=== PATIENT | female | born 1955 | race Caucasian/White ===

== ENCOUNTER 2020-09-21 10:53 | Outpatient (REF) | payer BC, SELFPAY ==
[2020-09-21 10:59] LABS: MANUAL DIFF FLAG NO
[2020-09-21 11:12] LABS: Basophils Percent Auto 0.7 % (0-2); Eosinophils Absolute Auto 0.3 X10*3/uL (0.0-0.4); Eosinophils Percent Auto 4.6 % (0-4); Hematocrit 38.7 % (37-47); Hemoglobin 12.4 g/dl (12.0-16.0); Imm Gran Abs Auto 0.02 X10*3/uL (0.00-0.03); Imm Gran Pct Auto 0.4 % (0.0-0.4); Lymphocytes Absolute Auto 1.9 X10*3/uL (1.2-4.9); Lymphocytes Percent Auto 34.1 % (20-40); Mean Corpuscular Hemoglobin 28.1 pg (27.0-33.0); Mean Corpuscular Volume 87.8 fL (80-98); Mean Platelet Volume 11.5 fL (9.4-12.3); Monocytes Absolute Auto 0.6 X10*3/uL (0.1-1.2); Monocytes Percent Auto 10.5 % (2-11); Neutrophils Absolute Auto 2.7 X10*3/uL (2.0-8.3); Neutrophils Percent Auto 49.7 % (45-73); Platelet Count 172 X10*3/uL (160-400); Red Blood Count 4.41 X10*6/uL (4.20-5.50); Red Cell Distribution Width 13.2 % (11.0-16.0); White Blood Count 5.4 X10*3/uL (4.8-10.8)
[2020-09-21 11:17] LABS: Estimated Average Glucose 117 mg/dL; Hemoglobin A1c % 5.7 %
[2020-09-21 11:22] LABS: Alanine Aminotransferase 15 U/L (0-31); Albumin Level 4.2 g/dL (3.5-5.0); Alkaline Phosphatase 68 U/L (39-117); Anion Gap 11 (12-20); Aspartate Amino Transferase 25 U/L (5-31); Bilirubin Total 0.7 mg/dL (0.0-1.0); Blood Urea Nitrogen 15 mg/dL (9-16); Calcium 9.3 mg/dL (8.4-10.2); Carbon Dioxide 26 mmol/L (22-29); Chloride 106 mmol/L (96-108); Cholesterol 242 mg/dL; Estimated Glomerular Filt Rate 53; Glucose Fasting 98 mg/dL (60-99); HDL Cholesterol 50 mg/dL; LDL Cholesterol Calculated 164 mg/dl; Potassium 4.2 mmol/L (3.3-5.1); Sodium 139 mmol/L (135-145); Total Protein 6.7 g/dL (6.5-8.0); Triglycerides 140 mg/dL
[2020-09-21 11:23] LABS: Glucose Urine UA NEG (NEG); Leukocyte Esterase Urine 1+ (NEG); Nitrite Urine NEG (NEG); Urine Blood NEG (NEG); Urine Ketones NEG (NEG); Urine Protein NEG (NEG-TRACE)
[2020-09-21 11:25] LABS: Appearance Urine CLEAR; Color Urine YELLOW
[2020-09-21 11:43] LABS: Vitamin D 25-OH Total 28.2 ng/mL (>30)
[2020-09-21 11:49] LABS: Creatinine Urine 45.83 mg/dL; Microalbumin Urine < 5.0 mg/L
[2020-09-21 11:51] LABS: Bacteria Urine TRACE /LPF; RBC Urine 0-2 /HPF (0); Squamous Epithelial Cell Urine 1+ /LPF; WBC Urine 0-2 /HPF (0-4)
[2020-09-21 11:56] LABS: Reflex LDLD? No
== END 2020-09-21 10:54 | disposition home or self-care (01) ==
LOC: HO.LNP 10:53
PROVIDERS: Visit Provider Internal Medicine
DX: Z00.00 Encounter for general adult medical examination without abnormal findings (principal); I10 Essential (primary) hypertension; E03.9 Hypothyroidism, unspecified; R73.03 Prediabetes; E78.00 Pure hypercholesterolemia, unspecified; E55.9 Vitamin D deficiency, unspecified
CPT/HCPCS: 80053; 80061; 81001; 81003; 82043; 82306; 83036; 84443; 85025

== ENCOUNTER 2021-09-23 11:10 | Outpatient (REF) | payer BC, SELFPAY ==
[2021-09-23 11:18] LABS: MANUAL DIFF FLAG NO
[2021-09-23 11:45] LABS: Basophils Absolute Auto 0.1 X10*3/uL (0.0-0.2); Basophils Percent Auto 0.8 % (0-2); Eosinophils Absolute Auto 0.4 X10*3/uL (0.0-0.4); Eosinophils Percent Auto 4.7 % (0-4); Hematocrit 38.7 % (37.0-47.0); Hemoglobin 12.5 g/dl (12.0-16.0); Imm Gran Abs Auto 0.03 X10*3/uL (0.00-0.03); Imm Gran Pct Auto 0.4 % (0.0-0.4); Lymphocytes Absolute Auto 2.5 X10*3/uL (1.2-4.9); Lymphocytes Percent Auto 32.2 % (20-40); Mean Corpuscular HGB Conc 32.3 g/dl (31.0-35.0); Mean Corpuscular Hemoglobin 27.9 pg (27.0-33.0); Mean Corpuscular Volume 86.4 fL (80.0-98.0); Mean Platelet Volume 11.2 fL (9.4-12.3); Monocytes Absolute Auto 0.6 X10*3/uL (0.1-1.2); Monocytes Percent Auto 8.1 % (2-11); Neutrophils Absolute Auto 4.2 x10*3/uL (2.0-8.3); Neutrophils Percent Auto 53.8 % (45-73); Platelet Count 200 X10*3/uL (160-400); Red Blood Count 4.48 X10*6/uL (4.20-5.50); Red Cell Distribution Width 13.2 % (11.0-16.0); White Blood Count 7.7 X10*3/uL (4.8-10.8)
[2021-09-23 11:55] LABS: Estimated Average Glucose 114 mg/dL; Hemoglobin A1c % 5.6 %
[2021-09-23 12:10] LABS: Appearance Urine CLEAR; Color Urine YELLOW; Glucose Urine UA NEG (NEG); Leukocyte Esterase Urine 1+ (NEG); Nitrite Urine NEG (NEG); PH 5.5 (5.0-8.0); Specific Gravity - Urine >= 1.030 (1.005-1.025); Urine Blood NEG (NEG); Urine Ketones NEG (NEG); Urine Protein NEG (NEG-TRACE)
[2021-09-23 12:48] LABS: Creatinine Urine 160.31 mg/dL; Microalbum/Creatinine Ratio Ur 6.8 ug/mg cr
[2021-09-23 12:52] LABS: Alanine Aminotransferase 12 U/L (0-31); Albumin Level 4.1 g/dL (3.5-5.0); Anion Gap 14 (12-20); Aspartate Amino Transferase 18 U/L (5-31); Bilirubin Total 0.8 mg/dL (0.0-1.0); Blood Urea Nitrogen 26 mg/dL (9-16); Calcium 8.7 mg/dL (8.4-10.2); Carbon Dioxide 20 mmol/L (22-29); Chloride 107 mmol/L (96-108); Estimated Glomerular Filt Rate 55; Glucose Fasting 77 mg/dL (60-99); Sodium 137 mmol/L (135-145); Total Protein 6.5 g/dL (6.5-8.0); Triglycerides 158 mg/dL
[2021-09-23 12:53] LABS: Alkaline Phosphatase 70 U/L (39-117); Cholesterol 216 mg/dL; HDL Cholesterol 39 mg/dL; LDL Cholesterol Calculated 146 mg/dl
[2021-09-23 13:04] LABS: TSH reflex Free T4 2.56 uIU/mL (0.32-4.0)
[2021-09-23 13:09] LABS: Hyaline Casts Urine 0-2 /LPF; RBC Urine 0 /HPF (0); Squamous Epithelial Cell Urine 1+ /LPF
== END 2021-09-23 11:11 | disposition home or self-care (01) ==
LOC: HO.LNP 11:10
PROVIDERS: Visit Provider Internal Medicine
DX: Z00.00 Encounter for general adult medical examination without abnormal findings (principal); I10 Essential (primary) hypertension; E03.9 Hypothyroidism, unspecified; R73.03 Prediabetes; E78.00 Pure hypercholesterolemia, unspecified; E55.9 Vitamin D deficiency, unspecified
CPT/HCPCS: 80053; 80061; 81001; 82043; 82306; 83036; 84443; 85025

== ENCOUNTER 2021-10-28 11:00 | Outpatient (REF) | payer BC, SELFPAY ==
[2021-10-28 11:23] LABS: Blood Urea Nitrogen 25 mg/dL (9-16); Estimated Glomerular Filt Rate 54
== END 2021-10-28 11:01 | disposition home or self-care (01) ==
LOC: HO.LNP 11:00
PROVIDERS: Visit Provider Internal Medicine
DX: Z13.89 Encounter for screening for other disorder (principal)
CPT/HCPCS: 82565; 84520

== ENCOUNTER 2022-03-22 16:13 | Emergency (ER) | payer BC, SELFPAY ==
--- NOTE | ~2022-03-22 | US_ITS ---
EXAMINATION: US ABDOMEN COMPLETE CLINICAL INFORMATION: Right upper quadrant pain radiating to the right flank. COMPARISON: MRI abdomen 09/22/2015. TECHNIQUE: Real-time imaging of the abdominal viscera. FINDINGS: PANCREAS: There is a 3.1 x 1.8 x 1.7 cm cystic appearing lesion in the pancreatic head, increased in size compared to prior MR from 2016 4 8 measure up to 2 cm. ABDOMINAL AORTA: The proximal, mid, and distal segments are normal in caliber. INFERIOR VENA CAVA: Visualized portions are normal. LIVER: The liver is normal in size. The liver contour is normal. Increased parenchymal echogenicity sparing the region adjacent to the gallbladder fossa. No focal hepatic lesion. There is no intrahepatic biliary duct dilatation seen. GALLBLADDER: Normal. The gallbladder is physiologically distended without evidence of stones, sludge, polyps, wall thickening or pericholecystic fluid. COMMON BILE DUCT: Normal in caliber measuring 0.4 cm in diameter. RIGHT KIDNEY: There is a simple cyst in the lower pole measuring 0.7 cm, for which no imaging follow-up is recommended. No hydronephrosis or renal calculi. The kidney measures 10 cm in maximum dimension. LEFT KIDNEY: There are multiple simple cysts largest measuring 2.3 cm in the lower pole for which no imaging follow-up is recommended. No hydronephrosis or renal calculi. The kidney measures 10.2 cm in maximum dimension. SPLEEN: Normal. The spleen measures 9.5 cm in maximum dimension. FREE FLUID: None. US/US abdomen complete IMPRESSION: 1. There is a 3.1 cm cystic lesion in the pancreatic head, increased in size compared to 2016 MR from 2016. Recommend further characterization with a contrast-enhanced abdominal MRI/MRCP pancreatic protocol. 2. Increased hepatic parenchymal echogenicity suggesting hepatic steatosis. 3. Simple bilateral renal cysts for which no imaging follow-up is recommended.
--- NOTE | ~2022-03-22 | CT_ITS ---
EXAMINATION: CT ABDOMEN AND PELVIS WITH CONTRAST CLINICAL INFORMATION: Abdominal pain. COMPARISON: Abdominal ultrasound performed earlier today. MRI abdomen 09/22/2015. CT abdomen/pelvis 09/20/2015.. TECHNIQUE: Multidetector volumetric images were obtained from the superior aspect of the liver through the pubic symphysis following administration 85 mL of Omnipaque 350 intravenous contrast. Sagittal and coronal reformatted images were obtained on the technologist's workstation. Oral contrast: No This CT examination was performed using dose optimization techniques as appropriate, variously including the following: *Automated exposure control *Adjustment of mA and/or kV according to patient size (this includes techniques or standardized protocols for targeted exams where dose is matched to indication/reason for exam; i.e. extremities or head) *Use of iterative reconstruction technique DLP: 629 mGy-cm FINDINGS: LUNG BASES: A 3 mm perifissural nodule along the right major fissure (4:39) is unchanged since 2016. No focal consolidation or pleural effusion. Partially visualized coronary artery calcifications. LIVER, GALLBLADDER, AND BILIARY TREE: A hypodensity in the central liver just anterior to the intrahepatic IVC (3:10) is unchanged since 2016. An additional tiny hypodensity more inferiorly in the right hepatic lobe (3:17) is also unchanged. No new liver lesion. Hydropic gallbladder with no evidence of stones or pericholecystic inflammatory changes. The common bile duct is mildly dilated measuring 0.7 cm in diameter, stable since 2016. No intrahepatic biliary ductal dilatation. PANCREAS: There is peripancreatic fat stranding with free fluid centered around the proximal pancreas most suggestive of acute pancreatitis. There is redemonstration of innumerable cystic appearing pancreatic lesions largest measuring 3.1 x 2 cm (3:23) increased in size when compared to a prior MR of the abdomen from 2016. There are scattered very small parenchymal calcifications suggesting of sequela of chronic pancreatitis. SPLEEN: Normal size. No focal lesion. ADRENAL GLANDS: No adrenal mass or nodule. KIDNEYS AND URETERS: Symmetric nephrograms. No hydronephrosis. No perinephric inflammatory changes. Multiple bilateral cortical and parapelvic cysts are noted for which no imaging follow-up is recommended. BLADDER: Unremarkable. GASTROINTESTINAL TRACT: Small hiatal hernia. There is dilatation, wall thickening and hyperemia of the duodenal sweep, likely reactive in the setting of pancreatitis. Normal appendix. Colonic diverticulosis with no pericolonic inflammatory changes. No bowel obstruction. ABDOMINAL WALL: Small fat-containing umbilical hernia. LYMPH NODES: No lymphadenopathy. VASCULAR: Abdominal aorta is of normal diameter. Is scattered atherosclerotic disease. PELVIC VISCERA: Hysterectomy. No pelvic mass. OSSEOUS STRUCTURES: No acute or aggressive appearing osseous abnormalities. Degenerative changes of the spine. CT/CT abdomen pelvis w IV con IMPRESSION: 1. Peripancreatic fat stranding and free fluid most consistent with acute pancreatitis in the appropriate clinical context. 2. Redemonstration of innumerable cystic appearing pancreatic lesions, largest measuring up to 3.1 cm, increased in size when compared to a prior MR of the abdomen from 2016 with also scattered parenchymal calcifications. Findings are overall favoring to represent sequela of chronic pancreatitis, however given changes in size further characterization with an MR of the abdomen with and without intravenous contrast plus MRCP. 3. Colonic diverticulosis but no evidence of acute diverticulitis. 4. Dilatation and wall thickening of the duodenal sweep, likely reactive in the setting of pancreatitis. 5. Small hiatal hernia.
--- NOTE | ~2022-03-22 | XR_ITS ---
EXAMINATION: XR CHEST CLINICAL INFORMATION: Nausea and epigastric abdominal pain. COMPARISON: Chest radiograph 02/22/2017. TECHNIQUE: 2 views of the chest were obtained. FINDINGS: No significant abnormality is noted involving the heart, lungs, mediastinum, bony thorax or soft tissues. XR/XR chest 2V IMPRESSION: Unremarkable examination.
[2022-03-22 16:17] VITALS: BP 137/74; PULSE 66; RESP 20; TEMP 36.6; O2SAT 98; BMI 29.8
--- NOTE | 2022-03-22 16:20 | ED_ITS ---
HPI - Abdominal Pain General Chief Complaint: Abdominal Pain Stated Complaint: food poisoning? nausea, stomach pain into back Time Seen by Provider: 03/22/22 16:30 Related Data Allergies Allergy/AdvReac Type Severity Reaction Status Date / Time No Known Allergies Allergy Unverified 11/20/19 16:36 [No Known Allergies*] FORMERLY [facility] Social History Social History Smoked in Last 30 Days: No Use of substances other than those prescribed or required for medical reasons: No Advance Directives: No Advance Directives Information Provided: Yes Physical Exam ED Vital Signs: Vital Signs - 24 hr 03/22/22 16:17 Temperature 97.8 F Pulse Rate 66 Respiratory Rate 20 Blood Pressure 137/74 Pulse Oximetry 98 Oxygen Delivery Method Room Air BMI result Body Mass Index 29.8 Course Course Course Narrative: RME- 16:25PM - 66yoF c PMHx of NSTEMI and HTN presenting to the ED c c/o nausea c epigastric abd pain radiating to R flank since last night worse today. Denies any other symptoms related to this. Plan: Labs, EKG, CXR, ABD us, UA, COVID/RSV/flu swab. Patient will be sent back to the waiting room to be evaluated in the ED. Medical Decision Making Lab Data 03/22/22 16:33 03/22/22 16:33 Labs: Lab Results 03/22/22 03/22/22 03/22/22 Range/Units 16:33 16:33 16:33 WBC 11.3 H (4.8-10.8) X10*3/uL RBC 4.65 (4.20-5.50) X10*6/uL Hgb 12.9 (12.0-16.0) g/dl Hct 38.4 (37.0-47.0) % MCV 82.6 (80.0-98.0) fL MCH 27.7 (27.0-33.0) pg MCHC 33.6 (31.0-35.0) g/dl RDW 12.4 (11.0-16.0) % Plt Count 198 (160-400) X10*3/uL MPV 10.1 (9.4-12.3) fL Immature Gran % (Auto) 0.3 (0.0-0.4) % Neut % (Auto) 78.2 H (45-73) % Lymph % (Auto) 12.1 L (20-40) % Barron % (Auto) 7.2 (2-11) % Eos % (Auto) 1.8 (0-4) % Baso % (Auto) 0.4 (0-2) % Lymph # (Auto) 1.4 (1.2-4.9) X10*3/uL Barron # (Auto) 0.8 (0.1-1.2) X10*3/uL Eos # (Auto) 0.2 (0.0-0.4) X10*3/uL Baso # (Auto) 0.0 (0.0-0.2) X10*3/uL Abs Immat Gran (auto) 0.03 (0.00-0.03) X10*3/uL Absolute Neuts (auto) 8.9 H (2.0-8.3) x10*3/uL Absolute Nucleated RBC 0.000 (0.0-0.012) X10*3/uL Nucleated RBC % (auto) 0.0 (0.0-0.2) /100WBC PT 12.0 (10.0-13.1) SEC INR 1.0 (0.9-1.1) Sodium 136 (135-145) mmol/L Potassium 4.0 (3.3-5.1) mmol/L Chloride 102 (96-108) mmol/L Carbon Dioxide 24 (22-29) mmol/L Anion Gap 14 (12-20) BUN 15 (9-16) mg/dL Creatinine 0.93 (0.5-1.4) mg/dL Estim Creat Clear Calc 64.9 Estimated GFR > 60 Random Glucose 118 H (60-115) mg/dL Calcium 9.1 (8.4-10.2) mg/dL Magnesium 1.7 (1.6-2.6) mg/dL Total Bilirubin 1.6 H (0.0-1.0) mg/dL AST 18 (5-31) U/L ALT 12 (0-31) U/L Alkaline Phosphatase 74 (39-117) U/L Troponin I High Sens (<3.5-17.0) ng/L Total Protein 6.6 (6.5-8.0) g/dL Albumin 4.1 (3.5-5.0) g/dL Lipase 51 (8-78) U/L Influenza Type A (PCR) (Negative) Influenza Type B (PCR) (Negative) RSV RNA Qual (PCR) (Negative) SARS-CoV-2 RNA (RT-PCR) (Negative) 03/22/22 03/22/22 Range/Units 16:33 16:33 WBC (4.8-10.8) X10*3/uL RBC (4.20-5.50) X10*6/uL Hgb (12.0-16.0) g/dl Hct (37.0-47.0) % MCV (80.0-98.0) fL MCH (27.0-33.0) pg MCHC (31.0-35.0) g/dl RDW (11.0-16.0) % Plt Count (160-400) X10*3/uL MPV (9.4-12.3) fL Immature Gran % (Auto) (0.0-0.4) % Neut % (Auto) (45-73) % Lymph % (Auto) (20-40) % Barron % (Auto) (2-11) % Eos % (Auto) (0-4) % Baso % (Auto) (0-2) % Lymph # (Auto) (1.2-4.9) X10*3/uL [place]ron # (Auto) (0.1-1.2) X10*3/uL Eos # (Auto) (0.0-0.4) X10*3/uL Baso # (Auto) (0.0-0.2) X10*3/uL Abs Immat Gran (auto) (0.00-0.03) X10*3/uL Absolute Neuts (auto) (2.0-8.3) x10*3/uL Absolute Nucleated RBC (0.0-0.012) X10*3/uL Nucleated RBC % (auto) (0.0-0.2) /100WBC PT (10.0-13.1) SEC INR (0.9-1.1) Sodium (135-145) mmol/L Potassium (3.3-5.1) mmol/L Chloride (96-108) mmol/L Carbon Dioxide (22-29) mmol/L Anion Gap (12-20) BUN (9-16) mg/dL Creatinine (0.5-1.4) mg/dL Estim Creat Clear Calc Estimated GFR Random Glucose (60-115) mg/dL Calcium (8.4-10.2) mg/dL Magnesium (1.6-2.6) mg/dL Total Bilirubin (0.0-1.0) mg/dL AST (5-31) U/L ALT (0-31) U/L Alkaline Phosphatase (39-117) U/L Troponin I High Sens < 3.5 (<3.5-17.0) ng/L Total Protein (6.5-8.0) g/dL Albumin (3.5-5.0) g/dL Lipase (8-78) U/L Influenza Type A (PCR) NEGATIVE (Negative) Influenza Type B (PCR) NEGATIVE (Negative) RSV RNA Qual (PCR) NEGATIVE (Negative) SARS-CoV-2 RNA (RT-PCR) NEGATIVE (Negative) Medications Administered Discontinued Medications Generic Name Dose Route Start Last Admin Trade Name Freq PRN Reason Stop Dose Admin Iohexol 85 ml 03/22/22 19:11 03/22/22 19:11 Iohexol 350 Mg/Ml 100 Ml Infus..Btl IV 03/22/22 19:12 85 ml ONCE ONE Administration Discharge Plan Discharge Clinical Impression: Abdominal pain Patient Disposition: Still a Patient
--- NOTE | 2022-03-22 16:22 | ECG_ITS ---
Test Reason : epigastric pain Blood Pressure : / mmHG Vent. Rate : 064 BPM Atrial Rate : 064 BPM P-R Int : 134 ms QRS Dur : 074 ms QT Int : 432 ms P-R-T Axes : 069 -06 011 degrees QTc Int : 445 ms Normal sinus rhythm Low voltage QRS Nonspecific ST and T wave abnormality Abnormal ECG When compared with ECG of 02-FEB-2017 10:27, Non-specific change in ST segment in Lateral leads Referred By: Desi Rodriguez Electronically Signed By:KJ ZUNIGA MD
[2022-03-22 16:37] LABS: MANUAL DIFF FLAG NO
[2022-03-22 16:38] LABS: Basophils Percent Auto 0.4 % (0-2); Eosinophils Absolute Auto 0.2 X10*3/uL (0.0-0.4); Eosinophils Percent Auto 1.8 % (0-4); Hematocrit 38.4 % (37.0-47.0); Hemoglobin 12.9 g/dl (12.0-16.0); Imm Gran Abs Auto 0.03 X10*3/uL (0.00-0.03); Imm Gran Pct Auto 0.3 % (0.0-0.4); Lymphocytes Absolute Auto 1.4 X10*3/uL (1.2-4.9); Lymphocytes Percent Auto 12.1 % (20-40); Mean Corpuscular HGB Conc 33.6 g/dl (31.0-35.0); Mean Corpuscular Hemoglobin 27.7 pg (27.0-33.0); Mean Corpuscular Volume 82.6 fL (80.0-98.0); Mean Platelet Volume 10.1 fL (9.4-12.3); Monocytes Absolute Auto 0.8 X10*3/uL (0.1-1.2); Monocytes Percent Auto 7.2 % (2-11); Neutrophils Absolute Auto 8.9 x10*3/uL (2.0-8.3); Neutrophils Percent Auto 78.2 % (45-73); Platelet Count 198 X10*3/uL (160-400); Red Blood Count 4.65 X10*6/uL (4.20-5.50); Red Cell Distribution Width 12.4 % (11.0-16.0); White Blood Count 11.3 X10*3/uL (4.8-10.8)
--- NOTE | 2022-03-22 16:47 | ED_ITS ---
HPI - Abdominal Pain General Chief Complaint: Abdominal Pain Stated Complaint: food poisoning? nausea, stomach pain into back Time Seen by Provider: 03/22/22 16:30 History of Present Illness HPI narrative: patient is a 66-year-old female had steak yesterday evening. Subsequently bout 4 hours later started developing epigastric pain radiating to the right upper quadrant. Patient never had similar symptoms in the past. Not associated with any chest pain. No bloody stool. No nausea no vomiting no rash. Positive decreased appetite. There is pain subsided gradually. It is not associated with any diaphoresis. Patient has a history of hypertension no history of [place] no history of coronary artery disease no history of hyper cholesterolemia no family history of CAD. Denies any change in bowel movement. No abdominal surgery done in the past. Related Data Previous Rx's Medication Instructions Recorded ondansetron 4 mg disintegrating 4 mg PO TID PRN nausea and 03/22/22 tablet vomiting 5 days #10 tabs oxycodone 5 mg tablet 5 mg PO Q8H PRN pain #7 tabs 03/22/22 Allergies Allergy/AdvReac Type Severity Reaction Status Date / Time No Known Allergies Allergy Unverified 11/20/19 16:36 [No Known Allergies*] Review of Systems Review of Systems Positive epigastric right upper quadrant pain Yes all other systems are reviewed and are negative [facility] Past Medical History Attestation statement: The following information was validated with the patient. Social History Social History Smoked in Last 30 Days: No Use of substances other than those prescribed or required for medical reasons: No Advance Directives: No Advance Directives Information Provided: Yes Physical Exam ED Vital Signs: Vital Signs - 24 hr 03/22/22 16:17 03/22/22 20:52 03/22/22 21:00 Temperature 97.8 F 99.0 F Pulse Rate 66 63 Respiratory Rate 20 16 16 Blood Pressure 137/74 125/62 Pulse Oximetry 98 96 Oxygen Delivery Method Room Air Room Air BMI result Body Mass Index 29.8 Appearance: Alert. Oriented X3. No acute distress. Eyes: Pupils equal, round and reactive to light. ENT: Pharynx normal. Neck: Normal inspection. Neck supple. No lymph nodes noted. No crepitus CVS: Normal heart rate and rhythm. Pulses normal. Normal S1 and S2 Respiratory: No respiratory distress. Breath sounds normal. No Wheezing. No rales Abdomen: Soft and nontender. No rigidity. No distention. good BS x4 Skin: Skin warm and dry. Normal skin color. Normal skin turgor. Extremities: No lower extremity edema. Neurovascular intact to all extremities. No Lacerations. No Rash Neuro: Oriented X 3. No motor deficit. No sensory deficit. Moving all extermities. No slurred speech Medical Decision Making Differential Diagnosis Patient presents with epigastric pain after eating fatty foods. Ultrasound ordered. It showed a 3.1 cm cystic lesion in the head of the pancreas. It has increased in size compared to 2016 MRI. Will require follow-up on an outpatient basis. Patient's LFTs actually normal. CT scan consistent with having some inflammation in the pancreas. Patient's lipase is normal. More likely this is some form of chronic left pancreatitis. Will require follow-up on an outpatient basis. Patient's pain subsided after 1 dose of Dilaudid. Pain not consistent with myocardial infarction. Patient's troponin is negative. EKG showed a sinus pattern heart rate is 70 CO QRS QT within normal limits there is no acute ST segment elevation. Pain atypical for ACS. Heart score is less than 3. Will require follow-up on an outpatient basis. A joint decision was made to send the patient home. A copy of the CT report ultrasound report was given to patient. Her LFTs actually baseline. Her lipase was normal. She is in stable condition. Will discharge home. Pain has completely resolved after dose of pain medicine. Admission/Observation Consideration of admission/observation: Escalation of care including admission/observation considered Lab Data MDM Lab Attestation statement: I reviewed the patient's lab results. 03/22/22 16:33 03/22/22 16:33 Labs: Lab Results 03/22/22 03/22/22 03/22/22 Range/Units 16:33 16:33 16:33 WBC 11.3 H (4.8-10.8) X10*3/uL RBC 4.65 (4.20-5.50) X10*6/uL Hgb 12.9 (12.0-16.0) g/dl Hct 38.4 (37.0-47.0) % MCV 82.6 (80.0-98.0) fL MCH 27.7 (27.0-33.0) pg MCHC 33.6 (31.0-35.0) g/dl RDW 12.4 (11.0-16.0) % Plt Count 198 (160-400) X10*3/uL MPV 10.1 (9.4-12.3) fL Immature Gran % (Auto) 0.3 (0.0-0.4) % Neut % (Auto) 78.2 H (45-73) % Lymph % (Auto) 12.1 L (20-40) % Campbell % (Auto) 7.2 (2-11) % Eos % (Auto) 1.8 (0-4) % Baso % (Auto) 0.4 (0-2) % Lymph # (Auto) 1.4 (1.2-4.9) X10*3/uL Campbell # (Auto) 0.8 (0.1-1.2) X10*3/uL Eos # (Auto) 0.2 (0.0-0.4) X10*3/uL Baso # (Auto) 0.0 (0.0-0.2) X10*3/uL Abs Immat Gran (auto) 0.03 (0.00-0.03) X10*3/uL Absolute Neuts (auto) 8.9 H (2.0-8.3) x10*3/uL Absolute Nucleated RBC 0.000 (0.0-0.012) X10*3/uL Nucleated RBC % (auto) 0.0 (0.0-0.2) /100WBC PT 12.0 (10.0-13.1) SEC INR 1.0 (0.9-1.1) Sodium 136 (135-145) mmol/L Potassium 4.0 (3.3-5.1) mmol/L Chloride 102 (96-108) mmol/L Carbon Dioxide 24 (22-29) mmol/L Anion Gap 14 (12-20) BUN 15 (9-16) mg/dL Creatinine 0.93 (0.5-1.4) mg/dL Estim Creat Clear Calc 64.9 Estimated GFR > 60 Random Glucose 118 H (60-115) mg/dL Calcium 9.1 (8.4-10.2) mg/dL Magnesium 1.7 (1.6-2.6) mg/dL Total Bilirubin 1.6 H (0.0-1.0) mg/dL AST 18 (5-31) U/L ALT 12 (0-31) U/L Alkaline Phosphatase 74 (39-117) U/L Troponin I High Sens (<3.5-17.0) ng/L Total Protein 6.6 (6.5-8.0) g/dL Albumin 4.1 (3.5-5.0) g/dL Lipase 51 (8-78) U/L Urine Color Urine Appearance Urine pH (5.0-9.0) Ur Specific [place] (1.005-1.025) Urine Protein (Neg-Trace) mg/dL Urine Glucose (UA) (Negative) mg/dL Urine Ketones (Negative) mg/dL Urine Blood (Negative) Urine Nitrite (Negative) Ur Leukocyte Esterase (Negative) Influenza Type A (PCR) (Negative) Influenza Type B (PCR) (Negative) RSV RNA Qual (PCR) (Negative) SARS-CoV-2 RNA (RT-PCR) (Negative) 03/22/22 03/22/22 03/22/22 Range/Units 16:33 16:33 21:00 WBC (4.8-10.8) X10*3/uL RBC (4.20-5.50) X10*6/uL Hgb (12.0-16.0) g/dl Hct (37.0-47.0) % MCV (80.0-98.0) fL MCH (27.0-33.0) pg MCHC (31.0-35.0) g/dl RDW (11.0-16.0) % Plt Count (160-400) X10*3/uL MPV (9.4-12.3) fL Immature Gran % (Auto) (0.0-0.4) % Neut % (Auto) (45-73) % Lymph % (Auto) (20-40) % Campbell % (Auto) (2-11) % Eos % (Auto) (0-4) % Baso % (Auto) (0-2) % Lymph # (Auto) (1.2-4.9) X10*3/uL [place] # (Auto) (0.1-1.2) X10*3/uL Eos # (Auto) (0.0-0.4) X10*3/uL Baso # (Auto) (0.0-0.2) X10*3/uL Abs Immat Gran (auto) (0.00-0.03) X10*3/uL Absolute Neuts (auto) (2.0-8.3) x10*3/uL Absolute Nucleated RBC (0.0-0.012) X10*3/uL Nucleated RBC % (auto) (0.0-0.2) /100WBC PT (10.0-13.1) SEC INR (0.9-1.1) Sodium (135-145) mmol/L Potassium (3.3-5.1) mmol/L Chloride (96-108) mmol/L Carbon Dioxide (22-29) mmol/L Anion Gap (12-20) BUN (9-16) mg/dL Creatinine (0.5-1.4) mg/dL Estim Creat Clear Calc Estimated GFR Random Glucose (60-115) mg/dL Calcium (8.4-10.2) mg/dL Magnesium (1.6-2.6) mg/dL Total Bilirubin (0.0-1.0) mg/dL AST (5-31) U/L ALT (0-31) U/L Alkaline Phosphatase (39-117) U/L Troponin I High Sens < 3.5 (<3.5-17.0) ng/L Total Protein (6.5-8.0) g/dL Albumin (3.5-5.0) g/dL Lipase (8-78) U/L Urine Color Yellow Urine Appearance Clear Urine pH 6.5 (5.0-9.0) Ur Specific [place] 1.025 (1.005-1.025) Urine Protein Trace (Neg-Trace) mg/dL Urine Glucose (UA) Negative (Negative) mg/dL Urine Ketones 15 (Negative) mg/dL Urine Blood Negative (Negative) Urine Nitrite Negative (Negative) Ur Leukocyte Esterase Negative (Negative) Influenza Type A (PCR) NEGATIVE (Negative) Influenza Type B (PCR) NEGATIVE (Negative) RSV RNA Qual (PCR) NEGATIVE (Negative) SARS-CoV-2 RNA (RT-PCR) NEGATIVE (Negative) Independent Interpretation I performed an independent interpretation of an: EKG Interpretation: Side is heart rate is 70 CO QRS QT within normal limits is no acute ST segment elevation. Radiology Impression Discussion of test interpretation with radiology: I have reviewed the radiologist's reading. Independent Historian Clinical information obtained from an independent historian. History obtained from or confirmed by: Spouse Prescription Management I considered prescription management with: Pain Medication Medications Administered Discontinued Medications Generic Name Dose Route Start Last Admin Trade Name Freq PRN Reason Stop Dose Admin Hydromorphone HCl 0.5 mg 03/22/22 20:25 03/22/22 20:52 Hydromorphone Hcl 0.5 Mg/0.5 Ml Syringe IVPUSH 03/22/22 20:26 0.5 mg ONCE ONE Administration Protocol Iohexol 85 ml 03/22/22 19:11 03/22/22 19:11 Iohexol 350 Mg/Ml 100 Ml Infus..Btl IV 03/22/22 19:12 85 ml ONCE ONE Administration Ondansetron HCl 4 mg 03/22/22 20:25 03/22/22 20:52 Ondansetron Hcl 4 Mg/2 Ml Vial IVPUSH 03/22/22 20:26 4 mg ONCE ONE Administration Discharge Plan Discharge Clinical Impression: Abdominal pain, Pancreatitis Patient Disposition: Home, Self-Care Instructions: Pancreatitis (ED), Acute Nausea and Vomiting (ED) Additional Instructions: Lots of nonspecific finding was noted on your CAT scan and ultrasound. You will need follow-up on an outpatient basis with your primary physician. Worsening condition return. Please refrain from eating fatty foods. Prescriptions: New ondansetron 4 mg tablet,disintegrating 4 mg PO TID PRN (Reason: nausea and vomiting) 5 Days Qty: 10 0RF oxycodone 5 mg tablet 5 mg PO Q8H PRN (Reason: pain) Qty: 7 0RF Rx Instructions: Partial Fill upon patient request. Referrals: Arsen Palacios MD [Primary Care Provider] -
[2022-03-22 16:52] LABS: Alanine Aminotransferase 12 U/L (0-31); Albumin Level 4.1 g/dL (3.5-5.0); Alkaline Phosphatase 74 U/L (39-117); Anion Gap 14 (12-20); Aspartate Amino Transferase 18 U/L (5-31); Bilirubin Total 1.6 mg/dL (0.0-1.0); Blood Urea Nitrogen 15 mg/dL (9-16); Calcium 9.1 mg/dL (8.4-10.2); Carbon Dioxide 24 mmol/L (22-29); Chloride 102 mmol/L (96-108); Creatinine Clr Calc Pharmacy 64.9; Estimated Glomerular Filt Rate > 60; Glucose Random 118 mg/dL (60-115); Lipase 51 U/L (8-78); Magnesium 1.7 mg/dL (1.6-2.6); Sodium 136 mmol/L (135-145); Total Protein 6.6 g/dL (6.5-8.0)
[2022-03-22 17:03] LABS: Troponin-I High Sensitivity < 3.5 ng/L (<3.5-17.0)
[2022-03-22 17:26] LABS: Influenza A PCR NEGATIVE (Negative); Influenza B PCR NEGATIVE (Negative); Resp Syncy Virus RNA Qual PCR NEGATIVE (Negative); SARS COV2 PCR INHOUSE NEGATIVE (Negative)
[2022-03-22] MEDS: iohexoL 350 MG/ML 100 ML INFUS..BTL 85 ML IV (19:11)
[2022-03-22 20:52] VITALS: RESP 16
[2022-03-22] MEDS: HYDROmorphone HCl 0.5 MG/0.5 ML SYRINGE IVPUSH (20:52)
[2022-03-22] MEDS: ondansetron HCL 4 MG/2 ML VIAL IVPUSH (20:52)
[2022-03-22 21:00] VITALS: BP 125/62; PULSE 63; RESP 16; TEMP 37.2; O2SAT 96
--- NOTE | 2022-03-22 21:04 | PC.NURSE ---
Pt c/o 09/11 abdominal pain that radiates to right side of abdomen and back. Pt medicated per may. Obtained urine sample.
[2022-03-22 21:13] LABS: Appearance Urine Clear; Color Urine Yellow; Glucose Urine UA Negative (Negative); Leukocyte Esterase Urine Negative (Negative); Nitrite Urine Negative (Negative); PH 6.5 (5.0-9.0); Specific Gravity - Urine 1.025 (1.005-1.025); Urine Blood Negative (Negative); Urine Ketones 15 mg/dL (Negative); Urine Protein Trace mg/dL (Neg-Trace)
== END 2022-03-22 22:05 | disposition home or self-care (01) ==
PROVIDERS: Physician Assistant Medical; Emergency Provider Emergency Medicine Emergency Medical Services; PCP Internal Medicine
DX: K85.90 Acute pancreatitis without necrosis or infection, unspecified (principal); R10.9 Unspecified abdominal pain; I10 Essential (primary) hypertension; Z20.822 Contact with and (suspected) exposure to COVID-19; Z20.828 Contact with and (suspected) exposure to other viral communicable diseases
CPT/HCPCS: 0241U; 36415; 71046; 74177; 76700; 80053; 81003; 83690; 83735; 84484; 85025; 85610; 93005; 96374; 96375; 99284; 99285; J1170; J2405; Q9967

== ENCOUNTER 2022-09-28 11:37 | Outpatient (REF) | payer BC, SELFPAY ==
[2022-09-28 11:42] LABS: MANUAL DIFF FLAG NO
[2022-09-28 13:29] LABS: Basophils Absolute Auto 0.1 X10*3/uL (0.0-0.2); Basophils Percent Auto 0.8 % (0-2); Eosinophils Absolute Auto 0.2 X10*3/uL (0.0-0.4); Eosinophils Percent Auto 3.4 % (0-4); Hemoglobin 13.6 g/dl (12.0-16.0); Imm Gran Abs Auto 0.02 X10*3/uL (0.00-0.03); Imm Gran Pct Auto 0.3 % (0.0-0.4); Lymphocytes Absolute Auto 1.8 X10*3/uL (1.2-4.9); Lymphocytes Percent Auto 25.5 % (20-40); Mean Corpuscular HGB Conc 31.6 g/dl (31.0-35.0); Mean Corpuscular Hemoglobin 27.6 pg (27.0-33.0); Mean Corpuscular Volume 87.4 fL (80.0-98.0); Mean Platelet Volume 11.5 fL (9.4-12.3); Monocytes Absolute Auto 0.5 X10*3/uL (0.1-1.2); Monocytes Percent Auto 6.8 % (2-11); Neutrophils Absolute Auto 4.5 x10*3/uL (2.0-8.3); Neutrophils Percent Auto 63.2 % (45-73); Platelet Count 183 X10*3/uL (160-400); Red Blood Count 4.92 X10*6/uL (4.20-5.50); White Blood Count 7.1 X10*3/uL (4.8-10.8)
[2022-09-28 13:33] LABS: Appearance Urine Cloudy; Color Urine Yellow; Glucose Urine UA Negative (Negative); Leukocyte Esterase Urine Small (1+) (Negative); Nitrite Urine Negative (Negative); PH 5.5 (5.0-9.0); UMIC TRIGGER UACC YES; Urine Blood Trace (Negative); Urine Ketones Negative (Negative); Urine Protein Negative (Neg-Trace)
[2022-09-28 13:43] LABS: Alanine Aminotransferase 13 U/L (0-31); Albumin Level 4.3 g/dL (3.5-5.0); Alkaline Phosphatase 77 U/L (39-117); Anion Gap 15 (12-20); Aspartate Amino Transferase 21 U/L (5-31); Bilirubin Total 0.8 mg/dL (0.0-1.0); Blood Urea Nitrogen 20 mg/dL (9-16); Calcium 9.3 mg/dL (8.4-10.2); Carbon Dioxide 20 mmol/L (22-29); Chloride 106 mmol/L (96-108); Cholesterol 249 mg/dL; Estimated Glomerular Filt Rate 52; Glucose Fasting 105 mg/dL (60-99); HDL Cholesterol 54 mg/dL; LDL Cholesterol Calculated 170 mg/dl; Potassium 4.2 mmol/L (3.3-5.1); Sodium 137 mmol/L (135-145); Total Protein 7.3 g/dL (6.5-8.0); Triglycerides 126 mg/dL
[2022-09-28 13:46] LABS: Bacteria Urine 1+ (None Seen); Hyaline Casts Urine 0-2 /LPF (0-2); UACC Culture Trigger YES; WBC Urine 0-5 /HPF (0-5)
[2022-09-28 13:49] LABS: TSH reflex Free T4 1.94 uIU/mL (0.32-4.0)
[2022-09-28 14:42] LABS: Creatinine Urine 148.69 mg/dL; Microalbum/Creatinine Ratio Ur 5.3 ug/mg cr
== END 2022-09-28 11:38 | disposition home or self-care (01) ==
LOC: HO.LNP 11:37
PROVIDERS: Visit Provider Internal Medicine
DX: Z00.00 Encounter for general adult medical examination without abnormal findings (principal); I10 Essential (primary) hypertension; E03.9 Hypothyroidism, unspecified; R73.03 Prediabetes; E78.00 Pure hypercholesterolemia, unspecified; E55.9 Vitamin D deficiency, unspecified
CPT/HCPCS: 80053; 80061; 81001; 82043; 82306; 84443; 85025; 87086

== ENCOUNTER 2023-03-09 15:47 | Outpatient (REF) | payer BC, SELFPAY | END 2023-03-09 15:48 | disposition home or self-care (01) | LOC: HO.MAMMO 15:47 | PROVIDERS: PCP Internal Medicine; Visit Provider Internal Medicine | DX: Z12.31 Encounter for screening mammogram for malignant neoplasm of breast (principal) | CPT/HCPCS: 77063; 77067 ==

== ENCOUNTER → 2023-03-09 16:30 | Outpatient (BNV) | payer BC, SELFPAY | PROVIDERS: PCP Internal Medicine; Visit Provider Radiology Diagnostic Radiology | DX: Z12.31 Encounter for screening mammogram for malignant neoplasm of breast (principal) | CPT/HCPCS: 77063; 77067 ==

== ENCOUNTER 2023-10-02 12:05 | Outpatient (REF) | payer BC, SELFPAY ==
[2023-10-02 12:10] LABS: MANUAL DIFF FLAG NO
[2023-10-02 12:16] LABS: Basophils Absolute Auto 0.1 X10*3/uL (0.0-0.2); Eosinophils Absolute Auto 0.2 X10*3/uL (0.0-0.4); Hematocrit 40.5 % (37.0-47.0); Hemoglobin 13.5 g/dl (12.0-16.0); Imm Gran Abs Auto 0.02 X10*3/uL (0.00-0.03); Imm Gran Pct Auto 0.3 % (0.0-0.4); Lymphocytes Percent Auto 33.6 % (20-40); Mean Corpuscular HGB Conc 33.3 g/dl (31.0-35.0); Mean Corpuscular Hemoglobin 28.8 pg (27.0-33.0); Mean Corpuscular Volume 86.5 fL (80.0-98.0); Mean Platelet Volume 11.7 fL (9.4-12.3); Monocytes Absolute Auto 0.5 X10*3/uL (0.1-1.2); Monocytes Percent Auto 9.3 % (2-11); Neutrophils Percent Auto 51.8 % (45-73); Platelet Count 169 X10*3/uL (160-400); Red Blood Count 4.68 X10*6/uL (4.20-5.50); White Blood Count 5.8 X10*3/uL (4.8-10.8)
[2023-10-02 12:19] LABS: Appearance Urine Cloudy; Color Urine Yellow; Glucose Urine UA Negative (Negative); Leukocyte Esterase Urine Moderate (2+) (Negative); Nitrite Urine Positive (Negative); PH 5.5 (5.0-9.0); Specific Gravity - Urine 1.025 (1.005-1.025); UMIC TRIGGER UACC YES; Urine Blood Negative (Negative); Urine Ketones Negative (Negative); Urine Protein Negative (Neg-Trace)
[2023-10-02 12:24] LABS: Bacteria Urine 4+ (None Seen); Estimated Average Glucose 117 mg/dL; Hemoglobin A1c % 5.7 % (<6.0); Hyaline Casts Urine 0-2 /LPF (0-2); RBC Urine 0-2 /HPF (0-2); UACC Culture Trigger YES
[2023-10-02 12:35] LABS: Alanine Aminotransferase 15 U/L (0-31); Albumin Level 4.2 g/dL (3.5-5.0); Alkaline Phosphatase 74 U/L (39-117); Anion Gap 12 (12-20); Aspartate Amino Transferase 22 U/L (5-31); Bilirubin Total 0.6 mg/dL (0.0-1.0); Blood Urea Nitrogen 19 mg/dL (9-16); Calcium 9.4 mg/dL (8.4-10.2); Carbon Dioxide 24 mmol/L (22-29); Chloride 108 mmol/L (96-108); Cholesterol 241 mg/dL (<200); Estimated Glomerular Filt Rate 55; Glucose Fasting 99 mg/dL (60-99); HDL Cholesterol 49 mg/dL (>40); LDL Cholesterol Calculated 165 mg/dL (<100); Potassium 3.9 mmol/L (3.3-5.1); Sodium 140 mmol/L (135-145); Total Protein 6.9 g/dL (6.5-8.0); Triglycerides 139 mg/dL (<150)
[2023-10-02 12:47] LABS: TSH reflex Free T4 2.12 uIU/mL (0.32-4.0); Vitamin D 25-OH Total 34.7 ng/mL (>30)
[2023-10-02 13:06] LABS: Microalbum/Creatinine Ratio Ur 5.4 ug/mg cr (<30)
== END 2023-10-02 12:06 | disposition home or self-care (01) ==
LOC: HO.LNP 12:05
PROVIDERS: Visit Provider Internal Medicine
DX: I10 Essential (primary) hypertension (principal); R73.09 Other abnormal glucose; E55.9 Vitamin D deficiency, unspecified; E03.9 Hypothyroidism, unspecified; E78.00 Pure hypercholesterolemia, unspecified
CPT/HCPCS: 80053; 80061; 81001; 82043; 82306; 82570; 83036; 84443; 85025; 87086

== ENCOUNTER 2024-04-03 09:50 | Outpatient (AMB) | payer BC, SELFPAY ==
--- NOTE | 2024-04-03 09:56 | MHC.OFFVIS ---
Vital Signs 04/03/24 10:07 Height 5 ft 6 in Weight 180 lb BMI 29.0 BP 142/67 H Blood Pressure Location Lt brachial Position Sitting Pulse 61 Intake Visit Reasons: pancreatic cyst Intake Note: Patient is seen in office for evaluation and treatment of a pancreatic cyst. Pt c/o: was sched for a repeat MRI and was told about the cyst, denies abdominal, nausea, vomit, diarrhea, constipation, no symptoms PCP: 03/20/24 MRI: 03/31/22 Legal Contracts Specialist Required: No Accompanied by: Self / Same As Patient Allergies No Known Allergies [No Known Allergies*] Allergy (Unverified 04/03/24 10:02) Medication List - Last Reconciled 04/03/24 by Olvin Miller MD levothyroxine mcg PO DAILY lisinopril mg PO DAILY metoprolol succinate ER mg PO DAILY HPI Comments Details: 68-year-old female patient presenting for evaluation of multiple pancreatic cysts noted on recent ultrasound and CT scan. She apparently was previously diagnosed with pancreatic cyst in 2015 and was evaluated with the abdominal MRI. Since this time there has been a slight increase in the size of the pancreatic cysts. Her most recent MRI performed on 03/31/2022 revealed benign-appearing pancreatic cysts which have increased slightly from the previous MRI. 1-2 year follow-up abdominal MRI is recommended. She currently denies any abdominal pain, nausea, vomiting, fever, chills, diarrhea, constipation, bloody stool or other bowel changes. Her last colonoscopy was performed by Dr. Hale in 2012. She is unaware of any previous history of pancreatitis. She presents today to discuss possible aspiration of the pancreatic cyst. PFS Surgical History Hx of thyroidectomy Hx of hysterectomy History of dental surgery Hx of cataract surgery Family History Mother Cancer of unknown origin Father Lung cancer Social History Alcohol intake: current Alcohol intake frequency: holidays/special occasions only Patient Tobacco Use Status: Never used Tobacco Review of Systems Const All systems reviewed & are unremarkable except as noted in HPI and below Physical Exam Vital Signs: Last Vital Signs Pulse 61 04/03/24 10:07 BP 142/67 H 04/03/24 10:07 BMI result Body Mass Index 29.0 Const General: no acute distress Nutritional Appearance: well nourished Orientation/consciousness: patient oriented x3 Resp Effort & Inspection: normal respiratory effort, no audible wheezes, no cough and no retractions GI Inspection: Yes normal to inspection Palpation (GI): Soft to palpation, Tenderness to palpation present (GI) (Deep palpation in the epigastrium without rebound or guarding), no guarding, not rigid and No hepatosplenomegaly present Percussion: Yes normal to percussion Auscultation: normal bowel sounds Rectal Exam - Female: deferred Neuro General: patient oriented x3 Extrem General: Yes normal to inspection Assessment & Plan Assessment & Plan (1) Pancreatic cyst: Code(s): K86.2 - Cyst of pancreas Category: Medical (2) Screening for colorectal cancer: Code(s): Z12.11 - Encounter for screening for malignant neoplasm of colon; Z12.12 - Encounter for screening for malignant neoplasm of rectum Category: Medical Plan 68-year-old female patient with a long history of pancreatic cyst 1st identified in 2016. This has been a mild increase in size since then with the patient is currently generally asymptomatic. Repeat MRI in 1-2 years is recommended therefore an order has been placed for an MRI for next year. I also recommended evaluation by Dr. Hale for colonoscopy. Should her symptoms become more severe radiologic drainage may be necessary but I would hold off on this at this time. I recommended follow-up examination in 1 year, sooner p.r.n.. Orders: Orders MR abdomen wo/w con 1 Year K86.2 - Cyst of pancreas Referrals Gastroenterology Referral K86.2 - Cyst of pancreas, Z12.11 - Encounter for screening for malignant neoplasm of colon, Z12.12 - Encounter for screening for malignant neoplasm of rectum Medications: Discontinued oxycodone Partial Fill upon patient request. Discontinued Reason: Patient Completed Course 5 mg PO Q8H PRN 7 tabs 0RF pain ondansetron Discontinued Reason: Patient Completed Course 4 mg PO TID 5 days PRN 10 tabs 0RF nausea and vomiting oxycodone Partial Fill upon patient request. Discontinued Reason: Patient Completed Course 5 mg PO Q6H PRN 14 tabs 0RF pain Coding Level of Care Code New Pt Level 4 (19428) Diagnoses Pancreatic cyst K86.2 Screening for colorectal cancer Z12.11; Z12.12
[2024-04-03 10:07] VITALS: BP 142/67; PULSE 61; BMI 29.0
--- OUTSIDE RECORDS SUMMARY | 2024-04-03 12:54 | XMS_ITS ---
Author Organization Arsen Palacios MD Address [address] [place] [phone] Care Team Providers Care Services Tech Name Role Phone Arsen Palacios Primary Care Provider REASON FOR VISIT MR Abd wo/w contrast Encounters Encounter Location Date Provider Diagnosis Arsen Palacios MD [address] [facility] [address] [place] [phone] 02/19/2024 Arsen Palacios Plan Of Treatment Next Appt Details Provider Name:Arsen bhagat, 04/11/2024 09:15:00 AM, [address] [place] [address], [address], [phone], Provider Name:Arsen bhagat, 10/10/2024 07:00:00 AM, [address] [place] [address], [address], [phone], Provider Name:Arsen bhagat, 10/17/2024 09:30:00 AM, [address] [place] [address], [address], [phone], Progress Notes * Lashae CASTELLON MDOB:[birth year] (68 yo F)Acc No.[id number]:02/19/2024 Patient:?Lashae Castellon :1955???Age:68 Y???Sex:Female Address:[facility] [place] [address] * true * Date:? Generated for Yunior crowley/Bolivar/eTransmitting on:?04/03/2024 12:54 PM EST
--- OUTSIDE RECORDS SUMMARY | 2024-04-03 12:55 | XMS_ITS ---
Author Organization Arsen Palacios MD Address [address] [place], [place] [phone] Care Team Providers Care Warehouse Puller Name Role Phone Philip Arsen Primary Care Provider Allergies No Known Allergies Reason For Referral Reason pancreatic cyst Diagnosis 1 Pancreatic cyst (K86 .2) Referral Organization Arsen Palacios MD Referring Provider First Name Arsen Referring Provider Last Name Philip Referring Provider Speciality Internal M edicine Referred Provider Olvin Miller Referred Provider Specialty Surgery General Notes Karen Estrada 0 03/20/2024 11:58:48 AM > spoke with patient she is aware of appt. Info mailed . Referral Priority Routine Referral Appointment Date 04/03/2024 REASON FOR VISIT follow up appt / discuss MRI Medications Medication SIG (Take, Route, Frequency, Duration) Notes Start Date End Date Status Levothyroxine Sodium 75 MCG Take 1 tablet by mouth once daily Active Lisinopril 10 MG Take 1 tablet by once daily for 90 Active oxyCODONE HCl 5 MG 1 tablet as needed Orally every 6 hrs Not-Taking Metoprolol Tartrate 50 MG 1 tablet with food Orally once a day Active Albuterol Sulfate HFA 108 (90 Base) MCG/ACT 1 puff as needed Inhalation every 4 hrs for 30 days 05/08/2022 Active Ibuprofen 800 MG 1 tablet Orally Thre e times a day for 30 day(s) 09/27/2015 Not-Taking Vital Signs Blood pressure systolic 152 mm Hg 03/20/19 25 Blood pressure diastolic 80 mm Hg 025 Height 67 in 03/20/2024 Weight 181 lbs 03/20/2024 BMI 28.35 kg/m2 03/20/2024 weight is up 2 pounds since 10-16-23 Encounters Encounter Location Date Provider Diagnosis Arsen Palacios MD [address] [place] [address] [address] [place], [place] [phone] 03/20/2024 Arsen Palacios Pancreatic cyst K86.2 Assessments Encounter Date Diagnosis (ICD Code) Assessment Notes Treatment Notes Treatment Clinical Notes Section Notes 03/20/2024 Pancreatic cyst (ICD-10 - K86.2) will contact [facility] to see if they do aspiration/ has no symptoms, the cysts have no solid components and no inflamation but due to the increase in size it is recommended that a drainage be done. will arrange for surgical evaluation, Total time spent on the date of the encounter is 35 minutes including both face to face time spent and time spent reviewing documentation, and counseling the patient. Plan Of Treatment Treatment Notes Assessment Notes Pancreatic cyst will contact [facility] o see if they do aspiration/ has no symptoms, the cysts have no solid components and no inflamation but due to the increase in size it is recommended that a drainage be done. will arrange for surgical evaluation, Total time spent on the date of the encounter is 35 minutes including both face to face time spent and time spent reviewing documentation, and counseling the patient. Referrals Referral Date Details 03/20/2024 03/20/2024, pancreat ic cyst , Olvin Miller Next Appt Details Follow Up: 4 Weeks, Reason: Provider Name:Arsen bhagat, 04/11/2024 09:15:00 AM, [address] [place] [address], [address], [place], [place], [phone], Provider Name:Arsen bhagat, 10/10/2024 07:00:00 AM, [address] [place] [address], [address], [place], [place], [phone], Provider Name:Arsen bhagat, 10/17/2024 09:30:00 AM, [address], [address], [place], [phone], Progress Notes * Lashae CASTELLON MDOB:[birth year] (68 yo F)Acc No.[id number]:03/20/2024 Patient:?Chon CASTELLONice Katarzyan Provider:?Arsen Palacios MD :1955???Age:68 Y???Sex:Female D ate:03/20/2024 Address:[id number] Subjective: * Chief Complaints: * ???1. follow up appt / discu ss MRI. * HPI: ???Symptom(s):? patient is a 68 yo female here for follow up and discussion os MRI. * ROS:?General/Constitutional:?Denies?Chills.?Denies?Fatigue.?Denies?Fever.?Denies?Headache.?ENT:?Patient denies?decreased sense of smell , any loss of taste , sore throat.?Denies?Sore throat.?Respiratory:?Denies?Cough.?Denies?Shortness of breath at rest.?Denies?Shortness of breath with exertion.?Gastrointestinal:?Denies?Diarrhea.?Denies?Nausea.?Musculoskeletal:?Patient denies?muscle aches.?Peripheral Vascular:?Patient denies?red and blue toes.? * Medical History:?10/30/2012 - Colonoscopy due in 10 years hyerplastic polyp due 2004 - total hysterectomy, Cardiac cath normal February pt had all upper teeth pulled and has dentures. * Medications:?Taking Albutero l Sulfate HFA 108 (90 Base) MCG/ACT Aerosol Solution 1 puff as needed Inhalation every 4 hrs , Taking Metoprolol Tartrate 50 MG Tablet 1 tablet with food Orally once a day , Taking Levothyroxine Sodium 75 MCG Tablet Take 1 tablet by mouth once daily , Taking Lisinopril 10 MG Tablet Take 1 tablet by mouth once daily , Not-Taking/PRN oxyCODONE HCl 5 MG Tablet 1 tablet as needed Orally every 6 hrs , Not-Taking/PRN Ibuprofen 800 MG Tablet 1 tablet Orally Three times a day * Allergies:?N.K.D.A. Objective: * Vitals:?Ht: 67, Wt: 181, BMI :28.35, BP:152/80, Repeat BP:120/84, Wt-k.1. weight is up 2 pounds since 10-16-23. * Examination: ???General Examination: ?GENERAL APPEARANCE:?well developed, well nourished.?HEAD:?normocephalic.?SKIN:?good turgor.?HEART:?regular rate and rhythm , no murmurs, rubs, gallops.?LUNGS:?no wheezes, rales, rhonchi , good air movement , clear to auscultation bilaterally.? Assessment: * Assessment: 1.?Pancreatic cyst - K86.2 ( Primary)??? Plan: * Treatment: * Follow Up:?4 Weeks * * The named appointment provid er may or may not be the originator of this progress note, and it is not deemed complete until electronically signed by the appointment provider. Sign off status: Pending * Provider:?Arsen Palacios MD Date:?0 03/20/2024 Generated for Yunior crowley/Bolivar/Carleyitting on:?04/03/2024 12:54 PM EST History and Physical Notes * HPI (History of Present Illness) Category Sub-Category Detail Notes Category Not es Symptom(s) patient is a 68 yo female here for follow up and discussion os MRI Examination Category Sub-Category Detail Notes Category Not es General Examination GENERAL APPEARANCE: well developed , well nourished HEAD: normocephalic HEART: regular rate and rhy thm , no murmurs, rubs, gallops LUNGS: no wheezes, rales, r honchi , good air movement , clear to auscultation bilaterally SKIN: good turgor Consultation Request Notes Referral Date Referring Provider Referred Provider Not es 03/20/2024 Arsen Palacios John pancreati c cyst
--- OUTSIDE RECORDS SUMMARY | 2024-04-03 12:55 | XMS_ITS ---
Author Organization Arsen Palacios MD Address [address] [place] [phone] Care Team Providers Care Choir Director Name Role Phone Arsen Palacios Primary Care Provider REASON FOR VISIT pancreatic cyst Encounters Encounter Location Date Provider Diagnosis Arsen Palacios MD 10 [facility] [address] [place] [phone] 03/20/2024 Arsen Palacios Plan Of Treatment Next Appt Details Provider Name:Arsen bhagat, 04/11/2024 09:15:00 AM, [address] [place] [address], [address], [phone], Provider Name:Arsen bhagat, 10/10/2024 07:00:00 AM, [address] [place] [address], [address], [phone], Provider Name:Arsen bhagat, 10/17/2024 09:30:00 AM, [address] [place] [address], [address], [phone], Progress Notes * Lashae CASTELLON MDOB:[birth year] (68 yo F)Acc No.[id number]:03/20/2024 Patient:?Lashae Castellon :1955???Age:68 Y???Sex:Female Address:[facility] [place] [address] * true * Date:? Generated for Yunior crowley/Bolivar/eTransmitting on:?04/03/2024 12:55 PM EST
== END 2024-04-03 10:17 | disposition home or self-care (01) ==
PROVIDERS: PCP Internal Medicine; Visit Provider Surgery
DX: K86.2 Cyst of pancreas (principal); Z12.11 Encounter for screening for malignant neoplasm of colon; Z12.12 Encounter for screening for malignant neoplasm of rectum
CPT/HCPCS: 99204

== ENCOUNTER 2024-10-10 10:28 | Outpatient (REF) | payer MEDICARE, SELFPAY ==
[2024-10-10 10:33] LABS: MANUAL DIFF FLAG NO
--- OUTSIDE RECORDS SUMMARY | 2024-10-10 10:33 | XMS_ITS | Patient Health Record ---
Author Organization [facility] Address [address] [place] [phone] Care Team Providers Care Health Program Director Name Role Phone Arsen Palacios MD Primary Care Provider [place] Arshad [phone] Allergies No Known Allergies Reason For Referral [...] Status Risk Notes Problem Feces contents abnormal (209985926) Heme + stool (792.1) Active confirmed Problem Colon cancer screening (323924309) Colon cancer screening (Z12.11) Active confirmed Problem Pancreatic cyst (41738885) Pancreatic cyst (K86.2) Active confirmed Problem Neoplasm of digestive system (448910782) IPMN (intraductal papillary mucinous neoplasm) (D49.0) Active confirmed Vital Signs Blood pressure diastolic 77 mm Hg 08/12/2024 Height 67 in 08/12/2024 Blood pressure systolic 111 mm Hg 08/12/2024 Weight 178 lbs 08/12/2024 BMI 27.88 kg/m2 08/12/2024 Procedures Procedure Date Ordered Date Performed Result Body Sit e COLONOSCOPY 08/12/2024 N/A Encounters Encounter Location Date Provider Diagnosis [facility] [address] [place] [phone] 08/12/2024 Quinton Hale Pancreatic cyst K86. 2 [...] and aspiration of the cyst down at [facility] with one of the GI doctors [...] and aspiration of the cyst down at [facility] with one of the GI doctors [...] and aspiration of the cyst down at [facility] with one of the GI doctors [...] Provider Name:Quinton Hale , 11/10/2024 10:30:00 AM, [address] [place] [address] , [place], [place], [phone], Insurance Providers Payer Name Payer Address Payer Phone Subscriber Number Group Number Insured Name Patient Relationship to Insured Coverage Start Date Coverage End Date [facility] [address] [place], [place] [id number] SIMON TOMAS Self - patient is the insured Medical (General) History Medical History History ICD Code HTN Hypothyroidism Denies MT,DM,CVA,Lung disease,renal dise ase Colonoscopy in 01/2001- neg [...]
--- OUTSIDE RECORDS SUMMARY | 2024-10-10 10:33 | XMS_ITS | Patient Health Record ---
Author Organization Arsen Palacios MD Address [address] [place], [place] [phone] Care Team Providers Care Energy Audit Advisor Name Role Phone Arsen Palacios Primary Care Provider Allergies No Known Allergies Results Component Value Reference Range Notes Occult Blood, Stool, Guaiac Reviewed date:10/16/2023 02:52:58 PM Interpretation:Negative Performing Lab: Notes/Report: Negative Occult Blood, Stool, Guaiac Neg Reason For Referral Reason pancreatic cyst Diagnosis [...] Problem Status W/U Status Risk Notes Problem 05760085 Vitamin D defici ency (E55.9) Active confirmed Problem 88760292 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) Active confirmed Problem 40460509 Essential hypert ension (I10) Active confirmed Problem 760324516 Acquired hypothy roidism (E03.9) Active confirmed Problem 4280381 Prediabetes (R73.09) Active confirmed Problem 895929020 S/P complete hysterectomy (Z90.710) Active confirmed Problem 408698854 Pure hypercholesterolemia (E78.00) Active confirmed Problem 431085334 Age-related inci pient cataract, unspecified laterality (H25.099) Active confirmed Problem 424841327 Age-related inci pient cataract of right eye [...] Arsen Palacios MD [address] [place] [phone] 11/13/2023 Arsen Palacios Encounter for immuni zation Z23 Arsen Palacios MD [address] [place] [id number] 10/10/2024 Arsen Palacios Essential hypertensi on I10 ; Pure hypercholesterolemia E78.00 and Vitamin D deficiency E55.9 Arsen Palacios MD [address] [place] [phone] 10/16/2023 Arsen Palacios Essential hypertensi on I10 ; Acquired hypothyroidism E03.9 ; Prediabetes R73.09 ; Pure hypercholesterolemia E78.00 ; Colon cancer screening Z12.11 and Depression screening Z13.31 Arsen Palacios MD [address] [phone] 03/20/2024 Arsen Palacios Pancreatic cyst K86. 2 Arsen Palacios MD [address] [place] [address] [id number] 04/29/2024 Arsen Palacios Pancreatic cyst K86. 2 Arsen Palacios [address] [place] [phone] 02/19/2024 Arsen Palacios MD [address] [place] [address] [phone] 03/20/2024 Arsen Palacios Assessments Encounter Date Diagnosis (ICD Code) Assessment Notes Treatment Notes Treatment Clinical Notes Section Notes 11/13/2023 Encounter for immunization (ICD-10 - Z23) 10/10/2024 Essential hypertensi on (ICD-10 - I10) 10/16/2023 Essential hypertensi on (ICD-10 - I10) [...] deiscion to observe for the short term 10/10/2024 Pure hypercholesterolemia (ICD-10 - E78.00) 10/16/2023 Prediabetes (ICD-10 - R73.09) good a1c, no need for medication at this time 10/10/2024 Vitamin D deficiency (ICD-10 - E55.9) 10/16/2023 Pure hypercholesterolemia (ICD-10 - E78.00) still a little high. has come down a little, will continue to monitor 10/16/2023 Colon cancer screeni ng (ICD-10 - Z12.11) guaiac negative 10/16/2023 Depression screening (ICD-10 - Z13.31) negative screen Plan Of Treatment Pending Test Test Name Order Date Electrocardiogram (EKG) 07/29/2015 Electrocardiogram (EKG) 08/18/2016 Complete Blood Count Auto Diff 5 Comprehensive [place]. Panel Fast 5 Liver Panel 10/10/2024 Lipid Panel 10/10/2024 Vitamin D 25-OH Total 10/10/2024 Microalbumin, Random 10/10/2024 MR abdomen wo/w con 04/04/2022 MR MRCP 03/23/2022 Hemoglobin A1c 10/10/2024 UA ClnCatch+Micro w/rflx Cult 10/10/2024 Next Appt Details Provider Name:Arsen bhagat, 10/17/2024 09:30:00 AM, [address] [place] [address], [address], [place], [place], [phone], Insurance Providers Payer Name Payer Address Payer Phone Subscriber Number Group Number Insured Name Patient Relationship to Insured Coverage Start Date Coverage End Date [employer] [address] [place], [place] [id number] Lashae Castellon Self - patient is the insured [employer] [address] [place] [address] [id number] Lashae Castellon Self - patient is the insured Medical (General) History Medical History History ICD Code 10/30/2012 - Colonoscopy due in 10 years hyerplastic polyp due 2022 2004 - total hysterectomy cardiac cath normal 2016 pt had all upper teeth pulled a nd has dentures Surgical History Surgery Date(Month/Year) complete hysterectomy 07/2004
[2024-10-10 12:18] LABS: Appearance Urine Hazy; Glucose Urine UA Negative (Negative); PH 6.0 (5.0-9.0); Specific Gravity - Urine >= 1.030 (1.005-1.025); UMIC TRIGGER UACC YES
[2024-10-10 12:19] LABS: Hematocrit 39.1 % (37.0-47.0); Hemoglobin 13.0 g/dl (12.0-16.0); Imm Gran Abs Auto 0.02 X10*3/uL (0.00-0.03); Imm Gran Pct Auto 0.4 % (0.0-0.4); Lymphocytes Absolute Auto 1.9 X10*3/uL (1.2-4.9); Mean Corpuscular HGB Conc 33.2 g/dl (31.0-35.0); Mean Corpuscular Hemoglobin 28.8 pg (27.0-33.0); Mean Corpuscular Volume 86.5 fL (80.0-98.0); NRBC Abs Auto 0.000 X10*3/uL (0.0-0.012); NRBC Pct Auto 0.0 /100WBC (0.0-0.2); Platelet Count 145 X10*3/uL (160-400); Red Blood Count 4.52 X10*6/uL (4.20-5.50); White Blood Count 5.3 X10*3/uL (4.8-10.8)
[2024-10-10 12:27] LABS: Hemoglobin A1C 138.9828 umol/L; Total Hemoglobin (HGBA1C) 3501.7671 umol/L
[2024-10-10 12:34] LABS: Alanine Aminotransferase 18 U/L (0-31); Albumin Level 4.2 g/dL (3.5-5.0); Alkaline Phosphatase 71 U/L (39-117); Anion Gap 12 (12-20); Aspartate Amino Transferase 30 U/L (5-31); Blood Urea Nitrogen 18 mg/dL (9-16); Calcium 8.9 mg/dL (8.4-10.2); Carbon Dioxide 25 mmol/L (22-29); Chloride 107 mmol/L (96-108); Cholesterol 246 mg/dL (<200); Estimated Glomerular Filt Rate 56; HDL Cholesterol 48 mg/dL (>40); Potassium 3.9 mmol/L (3.3-5.1); Sodium 140 mmol/L (135-145); Total Protein 6.8 g/dL (6.5-8.0); Triglycerides 147 mg/dL (<150)
[2024-10-10 13:05] LABS: UACC Culture Trigger YES
[2024-10-10 14:09] LABS: Microalbum/Creatinine Ratio Ur 6.4 ug/mg cr (<30)
== END 2024-10-10 10:29 | disposition home or self-care (01) ==
LOC: HO.LNP 10:28
PROVIDERS: Visit Provider Internal Medicine
DX: Z13.1 Encounter for screening for diabetes mellitus (principal); I10 Essential (primary) hypertension; E78.00 Pure hypercholesterolemia, unspecified; E55.9 Vitamin D deficiency, unspecified
CPT/HCPCS: 80053; 80061; 80076; 81001; 82043; 82248; 82306; 82570; 83036; 85025; 87086; 87088; 87186

== ENCOUNTER 2024-10-17 13:14 | Outpatient (REF) | payer MEDICARE, SELFPAY ==
--- OUTSIDE RECORDS SUMMARY | 2024-10-17 05:30 | XMS_ITS ---
Author Organization Arsen Palacios MD Address [address] [place], [place] [phone] Care Team Providers Care Health And Fitness Professor Name Role Phone Arsen Palacios Primary Care Provider Allergies No Known Allergies REASON FOR VISIT annual visit Medications Medication SIG (Take, Route, Frequency, Duration) Notes Start Date End Date Status Metoprolol Tartrate 50 MG 1 tablet with food Orally once a day Active Lisinopril 10 MG Take 1 tablet by yane once daily for 90 Active Albuterol Sulfate [...] kg/m2 10/17/2024 weight is down 5 pounds sin e 04-29-24 Encounters Encounter Location Date Provider Diagnosis Arsen Palacios MD [address] [place], [place] [phone] 10/17/2024 Arsen Palacios Annual physical exam Z00.00 [...] screening guaiac negative Depression screening negative screen Pending Test Test Name Order Date TSH reflex Free T4 10/17/2024 Future Test Test Name Order Date TSH reflex Free T4 04/19/2025 Next Appt Details Follow Up: 6 Months, Reason: Provider Name:Arsen Gonzalez ier, 10/30/2024 08:45:00 AM, [address] [facility], [address], [place], [phone], Provider Name:Arsen Gonzalez ier, 04/17/2025 07:30:00 AM, [address] [facility], [address], [place], [phone], Provider Name:Arsen Gonzalez ier, 04/24/2025 09:00:00 AM, [address] [facility], [address], [place], [phone], Provider Name:Arsen Gonzalez ier, 10/13/2025 07:15:00 AM, [address] [place] [address], Suite [facility], [place], [phone], Provider Name:Arsen Gonzalez ier, 10/20/2025 09:30:00 AM, [address] [place] [address], Suite [facility], [place], [phone], Progress Notes * Lashae CASTELLON MDOB:[birth year] (69 yo F)Acc No.[id number]:10/17/2024 Progress Notes Patient: Lashae BRANDT Provider: Bree Palacios MD :1955 A ge:69 Y S ex:Female Date:10/17/2024 Address:[address] [place] [address] [place], [id number] Subjective: * Chief Complaints: * 1 . Annual visit. * HPI: D epression Screening: PHQ-9 L [...] d enies. H eadache?denies. * Medical History: - Colonoscopy due in 10 years hyerplastic polyp due 2004 - total hysterectomy, Cardiac cath normal February pt had all upper teeth pulled and has dentures. * Family History: F ather: 76 yrs, [...] full-time. Pets: dog x1. * Medications: T aking Albuterol Sulfate HFA 108 (90 Base) MCG/ACT Aerosol Solution 1 puff as needed Inhalation every 4 hrs , Taking Metoprolol Tartrate 50 MG Tablet 1 tablet with food Orally once a day , Taking Lisinopril 10 MG Tablet Take 1 tablet by mouth once daily , Taking Levothyroxine Sodium 75 MCG Tablet Take 1 tablet by mouth once daily , Taking Cipro 250 MG Tablet 1 tablet Orally every 12 hrs , Not-Taking/PRN oxyCODONE HCl 5 MG Tablet 1 tablet as needed Orally every 6 hrs , Not-Taking/PRN Ibuprofen 800 MG Tablet 1 tablet Orally Three times a day , Medication List reviewed and reconciled with the patient * Allergies: N .K.D.A. Objective: * Vitals: H t: 67, Wt: [...] Average Glucose 120 - mg/dL L ab:Comprehensive [place]. Panel Fast (Order Date - 10/10/2024) (Collection [...] Blood Small (1+) A Negative - Specific [place] - Urine >= 1.030 H 1.005-1.025 - [...] masses palpable. FEMALE GENITOURINARY: d one by pattern generator operator. MUSCULOSKELETAL: r ectal exam negative and guaiac [...] BMI provided?Yes, A bella Normal BMI Follow-up Bree sumner encouragement to exercise. * Follow Up: 6 Months * * The named appointment provid er may or may not be the originator of this progress note, and it is not deemed complete until electronically signed by the appointment provider. Sign off status: Pending * Provider: Bree Palacios MD Date: 10/17/2024 Generated for Yunior crowley/Bolivar/Carleyitting on: 10/17/2024 01:16 PM EDT History and Physical Notes * HPI [...] Total Score: 0 Interpretation and Intervention Depression Shannone harjinder Findings: Negative Follow-Up for Depression: : review [...] had two or more falls in the st year?: No Communication Needs Communication Needs Does [...] and guaiac negative FEMALE GENITOURINARY: done by pattern generator operator ORAL CAVITY: mucosa moist
--- OUTSIDE RECORDS SUMMARY | 2024-10-17 13:17 | XMS_ITS | Patient Health Record ---
Author Organization [facility] Address [address] [place] [phone] Care Team Providers Care Cutter Grinder Name Role Phone Arsen Palacios MD Primary Care Provider Quinton Arshad [phone] Allergies No Known Allergies Reason For Referral [...] Status Risk Notes Problem Feces contents abnormal (276360248) Heme + stool (792.1) Active confirmed Problem Colon cancer screening (810961494) Colon cancer screening (Z12.11) Active confirmed Problem Pancreatic cyst (73505644) Pancreatic cyst (K86.2) Active confirmed Problem Neoplasm of digestive system (305939309) IPMN (intraductal papillary mucinous neoplasm) (D49.0) Active confirmed Vital Signs Blood pressure diastolic 77 mm Hg 08/12/2024 Height 67 in 08/12/2024 Blood pressure systolic 111 mm Hg 08/12/2024 Weight 178 lbs 08/12/2024 BMI 27.88 kg/m2 08/12/2024 Procedures Procedure Date Ordered Date Performed Result Body Sit e COLONOSCOPY 08/12/2024 N/A Encounters Encounter Location Date Provider Diagnosis [facility] [address] [place] [phone] 08/12/2024 Quinton Hale Pancreatic cyst K86. 2 [...] and aspiration of the cyst down at [facility] with one of the GI doctors [...] and aspiration of the cyst down at [facility] with one of the GI doctors [...] and aspiration of the cyst down at [facility] with one of the GI doctors [...] Provider Name:Quinton Hale , 11/10/2024 10:30:00 AM, [address] [place] [address] , [place], [place], [phone], Insurance Providers Payer Name Payer Address Payer Phone Subscriber Number Group Number Insured Name Patient Relationship to Insured Coverage Start Date Coverage End Date [facility] [address] [place], [place] [id number] SIMON TOMAS Self - patient is the insured Medical (General) History Medical History History ICD Code HTN Hypothyroidism Denies [place],DM,CVA,Lung disease,renal dise ase Colonoscopy in 01/2001- neg [...]
== END 2024-10-17 13:15 | disposition home or self-care (01) ==
LOC: HO.LNP 13:14
PROVIDERS: Visit Provider Internal Medicine
DX: Z00.00 Encounter for general adult medical examination without abnormal findings (principal)
CPT/HCPCS: 84443

== ENCOUNTER 2024-10-24 11:06 | Outpatient (REF) | payer MEDICARE, SELFPAY ==
--- OUTSIDE RECORDS SUMMARY | 2024-10-17 05:30 | XMS_ITS ---
Author Organization Arsen Palacios MD Address [address] [place], [place] [phone] Care Team Providers Care Sorter/Assay Tech Name Role Phone Arsen Palacios Primary Care Provider Allergies No Known Allergies Results Component Value Reference Range Notes TSH reflex Free T4 Reviewed date:10/17/2024 04:31:39 PM Interpretation: Performing Lab:[facility], [address] [place] [phone] Notes/Report: TSH reflex Free T4 1.24 0.32-4.0 uIU/mL REASON FOR VISIT annual visit Medications Medication SIG (Take, Route, Frequency, Duration) Notes Start Date End Date Status Metoprolol Tartrate 50 MG 1 tablet with food Orally once a day Active Lisinopril 10 MG Take 1 tablet by once daily for 90 Active Albuterol Sulfate HFA 108 (90 Base) MCG/ACT 1 puff as needed Inhalation every 4 hrs for 30 days 05/08/2022 Active oxyCODONE HCl 5 MG 1 tablet as needed Orally every 6 hrs Not-Taking Ibuprofen 800 MG 1 tablet Orally Thre e times a day for 30 day(s) 09/27/2015 Not-Taking Levothyroxine Sodium 75 MCG Take 1 tablet by mouth once daily for 90 Active Cipro 250 MG 1 tablet Orally ever y 12 hrs for 3 day(s) 10/16/2024 Active Social History Tobacco Use: Social History Observation [...] ast year? No Points 0 Interpretation Negative Vital Signs Blood pressure systolic 122 mm Hg 10/18/19 25 Blood pressure diastolic 70 mm Hg 025 Height 67 in 10/17/2024 Weight 174 lbs 10/17/2024 BMI 27.25 kg/m2 10/17/2024 weight is down 5 pounds [facility] e 04-29-24 Encounters Encounter Location Date Provider Diagnosis Arsen Palacios MD [address] [place] [address] [place] [phone] 10/17/2024 Arsen Palacios Annual physical exam Z00.00 ; Essential hypertension I10 ; Pure hypercholesterolemia E78.00 ; Acquired hypothyroidism E03.9 ; Cervical rib Q76.5 ; Colon cancer screening Z12.11 and Depression screening Z13.31 Assessments Encounter Date Diagnosis (ICD Code) Assessment Notes Treatment Notes Treatment Clinical Notes Section Notes 10/17/2024 Annual physical exam (ICD-10 - Z00.00) labs eviewed and discussed with patient 10/17/2024 Essential hypertensi on (ICD-10 - I10) well controlled, will continue current regiment 10/17/2024 Pure hypercholesterolemia (ICD-10 - E78.00) won't take meds, advised on need to take medds, and diet 10/17/2024 Acquired hypothyroid ism (ICD-10 - E03.9) stable, will continue current regiment 10/17/2024 Cervical rib (ICD-10 - Q76.5) 10/17/2024 Colon cancer screeni ng (ICD-10 - Z12.11) guaiac negative 10/17/2024 Depression screening (ICD-10 - Z13.31) negative screen Plan Of Treatment Treatment Notes Assessment Notes Annual physical exam labs eviewed and di scussed with patient Essential hypertension well controlled, will continue current regiment Pure hypercholesterolemia won't take med s, advised on need to take medds, and diet Acquired hypothyroidism stable, will con tinue current regiment Colon cancer screening guaiac negative Depression screening negative screen Future Test Test Name Order Date TSH reflex Free T4 04/19/2025 Next Appt Details Follow Up: 6 Months, Reason: Provider Name:Arsen bhagat, 04/17/2025 07:30:00 AM, [address] [place] [address], [place] [address], [place], [place], [phone], Provider Name:Arsen bhagat, 04/24/2025 09:00:00 AM, [address] [place] [address], [place] [address], [place], [place], [phone], Provider Name:Arsen turpinr, 10/13/2025 07:15:00 AM, [address] [place] [address], [place] [address], [place], [place], [phone], Provider Name:Arsen turpinr, 10/20/2025 09:30:00 AM, [address] [place] [address], [address], [phone], Progress Notes * Lashae CASTELLON MDOB:[birth year] (69 yo F)Acc No.[id number]:10/17/2024 Progress Notes Patient: Lashae BRANDT Provider: Bree Palacios MD :1955 A ge:69 Y S ex:Female Date:10/17/2024 Address:[address] [place] [address] Subjective: * Chief Complaints: * A nnual visit * HPI: D epression Screening: PHQ-9 L ittle interest or pleasure in doing things N ot at all, F eeling down, depressed, or hopeless N ot at all, T rouble falling or staying asleep, or sleeping too much N ot at all, F eeling tired or having little energy N ot at all, P oor appetite or overeating N ot at all, F eeling bad about yourself or that you are a failure, or have let yourself or your family down N ot at all, T rouble concentrating on things, such as reading the newspaper or watching television N ot at all, M oving or speaking so slowly that other people could have noticed; or the opposite, being so fidgety or restless that you have been moving around a lot more than usual N ot at all, T houghts that you would be better off or of hurting yourself in some way N ot at all, T otal Score 0 . I nterpretation and Intervention D epression Screening Findings N egative, F ollow-Up for Depression : review of PHQ-9 found negative result, no follow-up needed. here for yearly evaluation. C ommunication Needs: Communication Needs D oes the patient have a hearing impairment N o, D oes the patient have a vision impairment? Y es, I f yes, what is the vision impairment? G lasses, D oes the patient have a cognition impairment? N o. F all Risk: History H ave you had any falls with injury in the past year? N o, H ave you had two or more falls in the past year? N o. S SEMAJ Questions: SDOH Questions I n the past year have you been worried about losing housing? N o, I n the past year have you or any family members you live with been unable to get any of the following when it was really needed? Check all that apply: N one. S ymptom(s): patient is a 69 yo female here for annual visit with review of recent labs and follow up of chronic issues. * ROS: G eneral/Constitutional: Change in appetite d enies. C hills d enies. F ever d enies. O phthalmologic: Blurred vision d enies. D ischarge d enies. P ain d enies. E NT: Decreased hearing d enies. S ore throat d enies.?Swollen glands d enies. E ndocrine: Cold intolerance d enies. E xcessive thirst d enies. H eat intolerance d enies. W eight loss d enies. R espiratory: Cough d enies. S hortness of breath at rest d enies. S hortness of breath with exertion d enies. W heezing d enies. C ardiovascular: Chest pain at rest d enies. C hest pain with exertion?denies. I rregular heartbeat d enies. S hortness of breath d enies. ? G astrointestinal: Abdominal pain d enies. C hange in bowel habits d enies. D iarrhea d enies. N ausea d enies. R ectal bleeding d enies. V omiting d enies . G enitourinary: Blood in urine d enies. D ifficulty urinating d enies. F requent urination d enies. U rinary incontinence D enies. M usculoskeletal: Painful joints d enies. W eakness d enies. ? S kin: Dry skin d enies. I tching d enies. D enies?Mole(s), changes in moles, new moles or any lesions of concern. D enies P hotosensitivity. R keith d enies. N eurologic: Dizziness d enies. F ainting d enies. H eadache?denies. * Medical History: * Surgical History: * Hospitalization/Major Diagno stic Procedure: * Family History: F ather: 76 yrs, diagnosed with Cancer. M other: 87 yrs, diagnosed with Diabetes, Hypertension. 1 brother(s) . 1 son(s) , 2 daughter(s) - healthy. . Denies mental health/substance abuse family history, Denies mental health/substance abuse family history, Denies mental health/substance abuse family history, No pertinent family medical history, Denies mental health/substance abuse family history. * Social History: T obacco Use: T obacco Use/Smoking P atient is a n onsmoker, A dditional Findings: Tobacco Non-User C urrent non-smoker, currently using no form of tobacco. D rugs/Alcohol: A lcohol Screen D id you have a drink containing alcohol in the past year? N o, P oints 0 , I nterpretation N egative. M iscellaneous: C affeine: yes, frequency: 2 cans of coke. Children: yes. Community involvements: yes. Exercise: no. Housing: owning. Living with: spouse. Marital status: . Occupation: works full-time. Pets: dog x1. * Medications: T akingAlbuterol Sulfate HFA 108 (90 Base) MCG/ACT Aerosol Solution 1 puff as needed Inhalation every 4 hrs Metoprolol Tartrate 50 MG Tablet 1 tablet with food Orally once a day Lisinopril 10 MG Tablet Take 1 tablet by mouth once daily Levothyroxine Sodium 75 MCG Tablet Take 1 tablet by mouth once daily Cipro 250 MG Tablet 1 tablet Orally every 12 hrs Taking Albuterol Sulfate HFA 108 (90 Base) MCG/ACT Aerosol Solution 1 puff as needed Inhalation every 4 hrs Taking Metoprolol Tartrate 50 MG Tablet 1 tablet with food Orally once a day Taking Lisinopril 10 MG Tablet Take 1 tablet by mouth once daily Taking Levothyroxine Sodium 75 MCG Tablet Take 1 tablet by mouth once daily Taking Cipro 250 MG Tablet 1 tablet Orally every 12 hrs Not-Taking/PRNoxyCODONE HCl 5 MG Tablet 1 tablet as [...] Objective: * Vitals: H t: 67, Wt: 174, BMI:27.25, BP:122/70, Wt-k.93. weight is down 5 pounds since 04-29-24. * P ast Orders: L ab:Vitamin D 25-OH Total (Order Date - 10/10/2024) (Collection Date & Time - 10/10/2024 07:00 AM) Value Reference Range Vitamin D 25-OH Total 39.6 >30 - ng/mL L ab:Microalbumin, Random (Order Date - 10/10/2024) (Collection Date & Time - 10/10/2024 07:00 AM) Value Reference Range Creatinine Urine 123.99 - mg/dL Microalbumin Urine 8.0 - mg/L Microalbum Creatinine Ratio Ur 6.4 <30 - ug/ mg cr L ab:Complete Blood Count Auto Diff (Order Date - 10/10/2024) (Collection Date & Time - 10/10/2024 07:00 AM) Value Reference Range White Blood Count 5.3 4.8-10.8 - X10*3/uL Red Blood Count 4.52 4.20-5.50 - X10*6/uL Hemoglobin 13.0 12.0-16.0 - g/dl Hematocrit 39.1 37.0-47.0 - % Mean Corpuscular Volume 86.5 80.0-98.0 - fL Mean Corpuscular Hemoglobin 28.8 27.0-33.0 - pg Mean Corpuscular HGB Conc 33.2 31.0-35.0 - g/ dl Red Cell Distribution Width 13.2 11.0-16.0 - % Platelet Count 145 L 160-400 - X10*3/uL Mean Platelet Volume 11.6 9.4-12.3 - fL Neutrophils Percent Auto 48.8 45-73 - % Imm Gran Pct Auto 0.4 0.0-0.4 - % Lymphocytes Percent Auto 36.4 20-40 - % Monocytes Percent Auto 8.9 2-11 - % Eosinophils Percent Auto 4.4 H 0-4 - % Basophils Percent Auto 1.1 0-2 - % NRBC Pct Auto 0.0 0.0-0.2 - /100WBC Neutrophils Absolute Auto 2.6 2.0-8.3 - x10* 3/uL Imm Gran Abs Auto 0.02 0.00-0.03 - X10*3/uL Lymphocytes Absolute Auto 1.9 1.2-4.9 - X10* 3/uL Monocytes Absolute Auto 0.5 0.1-1.2 - X10*3/ uL Eosinophils Absolute Auto 0.2 0.0-0.4 - X10* 3/uL Basophils Absolute Auto 0.1 0.0-0.2 - X10*3/ uL NRBC Abs Auto 0.000 0.0-0.012 - X10*3/uL L ab:Hemoglobin A1c (Order Date - 10/10/2024) (Collection Date & Time - 10/10/2024 07:00 AM) Value Reference Range Hemoglobin A1c % 5.8 <6.0 - % Estimated Average Glucose 120 - mg/dL L ab:Comprehensive [place]. Panel Fast (Order Date - 10/10/2024) (Collection Date & Time - 10/10/2024 07:00 AM) Value Reference Range Sodium 140 135-145 - mmol/L Bilirubin Total 0.9 0.0-1.0 - mg/dL Aspartate Amino Transferase 30 5-31 - U/L Alanine Aminotransferase 18 0-31 - U/L Total Protein 6.8 6.5-8.0 - g/dL Albumin Level 4.2 3.5-5.0 - g/dL Alkaline Phosphatase 71 39-117 - U/L Potassium 3.9 3.3-5.1 - mmol/L Chloride 107 96-108 - mmol/L Carbon Dioxide 25 22-29 - mmol/L Anion Gap 12 12-20 - Blood Urea Nitrogen 18 H 9-16 - mg/dL Creatinine 0.98 0.5-1.4 - mg/dL Estimated Glomerular Filt Rate 56 - Glucose Fasting 95 60-99 - mg/dL Calcium 8.9 8.4-10.2 - mg/dL L ab:UA ClnCatch+Micro w/rflx Cult (Order Date - 10/10/2024) (Collection Date & Time - 10/10/2024 07:00 AM) Value Reference Range Color Urine Yellow - Appearance Urine Hazy - PH 6.0 5.0-9.0 - Glucose Urine UA Negative Negative - mg/dL Urine Blood Small (1+) A Negative - Specific [place] - Urine >= 1.030 H 1.005-1.025 - Urine Protein Negative Neg-Trace - mg/dL Urine Ketones Negative Negative - mg/dL Nitrite Urine Positive A Negative - Leukocyte Esterase Urine Moderate (2+) A Negative - RBC Urine 0-2 0-2 - /HPF WBC Urine 6-10 A 0-5 - /HPF Squamous Epithelial Cell Urine 3-5 0-2 - /HP F Bacteria Urine 3+ None Seen - Hyaline Casts Urine 0-2 0-2 - /LPF L ab:Liver Panel (Order Date - 10/10/2024) (Collection Date & Time - 10/10/2024 07:00 AM) Value Reference Range Bilirubin Direct 0.2 0.0-0.5 - mg/dL L ab:Lipid Panel (Order Date - 10/10/2024) (Collection Date & Time - 10/10/2024 07:00 AM) Value Reference Range Triglycerides 147 <150 - mg/dL Cholesterol 246 H <200 - mg/dL LDL Cholesterol Calculated 169 H <100 - mg/dL HDL Cholesterol 48 >40 - mg/dL * Examination: G eneral Examination: GENERAL APPEARANCE: w ell developed, well nourished, in no acute distress. HEAD: n ormocephalic, atraumatic. EYES: p upils equal, round, reactive to light and accommodation, sclera non-icteric. EARS: n ormal. ORAL CAVITY: m ucosa moist. THROAT: c lear. NECK/THYROID: n celeste supple, full range of motion, no cervical lymphadenopathy, no bruits, abnormal rt posterior neck is a hard bump consistent with a cervical rib. SKIN: w arm and dry, no suspicious lesions. HEART: r egular rate and rhythm, S1, S2 normal, no murmurs.? LUNGS: c lear to auscultation bilaterally. BREASTS: N o mass, no lump. ABDOMEN: s oft, nontender, nondistended, bowel sounds present, normal, no organomegaly , no masses palpable. FEMALE GENITOURINARY: d one by manufacturing electrician. MUSCULOSKELETAL: r ectal exam negative and guaiac negative.? EXTREMITIES: n o clubbing, cyanosis, or edema. NEUROLOGIC: n onfocal, motor strength normal upper and lower extremities, sensory exam intact. Assessment: * Assessment: 1. A nnual physical exam - Z00.00 (Primary) 2 . E ssential hypertension - I10 3 . P ure hypercholesterolemia - E78.00 4 . A cquired hypothyroidism - E03.9 5 . C ervical rib - Q76.5 6 . C olon cancer screening - Z12.11 7 . D epression screening - Z13.31 Plan: * Treatment: 2. E ssential hypertension Notes: well controlled, will continue current regiment 3. P ure hypercholesterolemia Notes: won't take meds, advised on need to take medds, and diet 4. A cquired hypothyroidism Notes: stable, will continue current regiment 5. C olon cancer screening Notes: guaiac negative 6. D epression screening Notes: negative screen * Procedure Codes: 3 6415 VENIPUNCT, ROUTINE* * Preventive Medicine: Counseling: C are goal follow-up plan: C ounseling for abnormal BMI provided?Yes, A bella Normal BMI Follow-up G iving encouragement to exercise. * Follow Up: 6 Months * * Sign off status: Completed true * Provider: Bree Palacios MD Date: 0 10/17/2024 Generated for Yunior crowley/Bolivar/Jesenia on: 0 10/24/2024 11:11 AM EDT History and Physical Notes * HPI (History of Present Illness) Category Sub-Category Detail Notes Category Not es Symptom(s) patient is a 69 yo female here for annual visit with review of recent labs and follow up of chronic issues Depression Screening PHQ-9 Little inte rest or pleasure in doing things: Not at all here for yearly evaluation Feeling down, depressed, or hopeless: No t at all Trouble falling or staying asleep, or sl eeping too much: Not at all Feeling tired or having little energy: N ot at all Poor appetite or overeating: Not at all Feeling bad about yourself o r that you are a failure, or have let yourself or your family down: Not at all Trouble concentrating on thi ngs, such as reading the newspaper or watching television: Not at all Moving or speaking so slowly that other people could have noticed; or the opposite, being so fidgety or restless that you have been moving around a lot more than usual: Not at all Thoughts that you would be b minor off or of hurting yourself in some way: Not at all Total Score: 0 Interpretation and Intervention Depression Joshua grande Findings: Negative Follow-Up for Depression: : review of PH Q-9 found negative result, no follow-up needed SDOH Questions SDOH Questions In the past year have you been worried about losing housing?: No In the past year have you or any family members you live with been unable to get any of the following when it was really needed? Check all that apply:: None Fall Risk History Have you had any falls with injury i n the past year?: No Have you had two or more falls in the year?: No Communication Needs Communication Needs Does the patient have a hearing impairment: No Does the patient have a vision impairmen t?: Yes If yes, what is the vision impairment?: Glasses Does the patient have a cognition impair ment?: No Examination Category Sub-Category Detail Notes Category Not es General Examination GENERAL APPEARANCE: well dev eloped, well nourished, in no acute distress HEAD: normocephalic, atrau matic EYES: pupils equal, round, reactive to light and accommodation, sclera non-icteric EARS: normal THROAT: clear NECK/THYROID: neck supple, full ra nge of motion, no cervical lymphadenopathy, no bruits, abnormal rt posterior neck is a hard bump consistent with a cervical rib HEART: regular rate and rhy thm, S1, S2 normal, no murmurs LUNGS: clear to auscultatio n bilaterally ABDOMEN: soft, nontender, non distended, bowel sounds present, normal, no organomegaly , no masses palpable NEUROLOGIC: nonfocal, motor stre ngth normal upper and lower extremities, sensory exam intact SKIN: warm and dry, no neri picious lesions EXTREMITIES: no clubbing, cyanosi s, or edema BREASTS: No mass, no lump MUSCULOSKELETAL: rectal exam negative and guaiac negative FEMALE GENITOURINARY: done by manufacturing electrician ORAL CAVITY: mucosa moist
--- OUTSIDE RECORDS SUMMARY | 2024-10-24 11:11 | XMS_ITS | Patient Health Record ---
Author Organization [facility] Address [address] [place] [phone] Care Team Providers Care Airplane Tube Builder Name Role Phone Arsen Palacios MD Primary Care Provider Quinton Arshad [phone] Allergies No Known Allergies Reason For Referral [...] Status Risk Notes Problem Feces contents abnormal (064999924) Heme + stool (792.1) Active confirmed Problem Colon cancer screening (232142615) Colon cancer screening (Z12.11) Active confirmed Problem Pancreatic cyst (34210566) Pancreatic cyst (K86.2) Active confirmed Problem Neoplasm of digestive system (327234964) IPMN (intraductal papillary mucinous neoplasm) (D49.0) Active confirmed Vital Signs Blood pressure diastolic 77 mm Hg 08/12/2024 Height 67 in 08/12/2024 Blood pressure systolic 111 mm Hg 08/12/2024 Weight 178 lbs 08/12/2024 BMI 27.88 kg/m2 08/12/2024 Procedures Procedure Date Ordered Date Performed Result Body Sit e COLONOSCOPY 08/12/2024 N/A Encounters Encounter Location Date Provider Diagnosis [facility] [address] [place] [phone] 08/12/2024 Quinton Hale Pancreatic cyst K86. 2 [...] and aspiration of the cyst down at [facility] with one of the GI doctors [...] and aspiration of the cyst down at [facility] with one of the GI doctors [...] and aspiration of the cyst down at [facility] with one of the GI doctors [...] Provider Name:Quinton Hale , 11/10/2024 10:30:00 AM, [address] [place] [address] , [place], [place], [phone], Insurance Providers Payer Name Payer Address Payer Phone Subscriber Number Group Number Insured Name Patient Relationship to Insured Coverage Start Date Coverage End Date [facility] [address] [place], [place] [id number] SIMON TOMAS Self - patient is the insured Medical (General) History Medical History History ICD Code HTN Hypothyroidism Denies [place],DM,CVA,Lung disease,renal dise ase Colonoscopy in 01/2001- neg [...]
[2024-10-24 11:16] LABS: Appearance Urine Clear; Glucose Urine UA Negative (Negative); PH 5.5 (5.0-9.0); Specific Gravity - Urine 1.010 (1.005-1.025)
== END 2024-10-24 11:07 | disposition home or self-care (01) ==
LOC: HO.LNP 11:06
PROVIDERS: Visit Provider Internal Medicine
DX: N39.0 Urinary tract infection, site not specified (principal)
CPT/HCPCS: 81001

== ENCOUNTER 2024-11-10 08:17 | Day surgery (SDC) | payer MEDICARE, SELFPAY ==
--- OUTSIDE RECORDS SUMMARY | 2024-09-29 14:26 | XMS_ITS | Patient Health Record ---
Author Organization [facility] Address [address] [place] [phone] Care Team Providers Care Shear Scrapman Name Role Phone Arsen Palacios MD Primary Care Provider Quinton Arshad [phone] Allergies No Known Allergies Reason For Referral No Information Medications Medication SIG (Take, Route, Frequency, Duration) Notes Start Date End Date Status Lisinopril 10 MG 1 tablet Orally Once a day Active Metoprolol Succinate ER 50 MG Oral for 90 Days Active Levothyroxine Sodium 75 MCG 1 capsule in the morning on an empty stomach Orally Once a day Active Problems Problem Type SNOMED Code ICD Code Onset Dates Problem Status W/U Status Risk Notes Problem Feces contents abnormal (844068019) Heme + stool (792.1) Active confirmed Problem Colon cancer screening (882002418) Colon cancer screening (Z12.11) Active confirmed Problem Pancreatic cyst (58142870) Pancreatic cyst (K86.2) Active confirmed Problem Neoplasm of digestive system (807982064) IPMN (intraductal papillary mucinous neoplasm) (D49.0) Active confirmed Vital Signs Blood pressure diastolic 77 mm Hg 08/12/2024 Height 67 in 08/12/2024 Blood pressure systolic 111 mm Hg 08/12/2024 Weight 178 lbs 08/12/2024 BMI 27.88 kg/m2 08/12/2024 Procedures Procedure Date Ordered Date Performed Result Body Sit e COLONOSCOPY 08/12/2024 N/A Encounters Encounter Location Date Provider Diagnosis [facility] [address] [place] [phone] 08/12/2024 Quinton Hale Pancreatic cyst K86. 2 ; IPMN (intraductal papillary mucinous neoplasm) D49.0 and Colon cancer screening Z12.11 Assessments Encounter Date Diagnosis (ICD Code) Assessment Notes Treatment Notes Treatment Clinical Notes Section Notes 08/12/2024 Pancreatic cyst (ICD-10 - K86.2) Need any panreas MRI report from 2023 if she had it.....if 2022 was the last MRI then we will order one for this year Overall, Tomas appears quite well. She is not having any new or worrisome GI complaints. I did recommend a colonoscopy for screening purposes given her last exam being in 2012. We did review the rationale for this in regard to colon cancer prevention. Full consent is obtained for this, including risks of bleeding and perforation. The procedure will be done with monitored anesthesia care. In regard to the history of pancreatic cysts, this certainly seems to represent IPMN given her excellent clinical appearance, the description of the appearance of the cysts on the imaging studies,, and longevity of the cysts being present. However, the enlargement of the cyst in the head of the pancreas over the last number of years is somewhat concerning and may require an endoscopic ultrasound and aspiration for definitive evaluation. I do not think it is anything urgent as the index of suspicion is low, but nonetheless this does need to be followed closely given what appears to be the enlargement of the cyst. I shall check a CA 19-9 level. Once we have completed the colonoscopy I will plan to check a follow-up MRI of the pancreas later this year. Based on that result i will then discuss sending her for an evaluation for an endoscopic ultrasound and aspiration of the cyst down at [facility] with one of the GI doctors there if they think it is appropriate based on their evaluation of her imaging studies. Tomas was comfortable with this plan. Thank you again for allowing me to participate in Tomas's care. I shall continue to keep you advised of her progress. 08/12/2024 IPMN (intraductal papillary mucinous neoplasm) (ICD-10 - D49.0) Overall, Tomas appears quite well. She is not having any new or worrisome GI complaints. I did recommend a colonoscopy for screening purposes given her last exam being in 2012. We did review the rationale for this in regard to colon cancer prevention. Full consent is obtained for this, including risks of bleeding and perforation. The procedure will be done with monitored anesthesia care. In regard to the history of pancreatic cysts, this certainly seems to represent IPMN given her excellent clinical appearance, the description of the appearance of the cysts on the imaging studies,, and longevity of the cysts being present. However, the enlargement of the cyst in the head of the pancreas over the last number of years is somewhat concerning and may require an endoscopic ultrasound and aspiration for definitive evaluation. I do not think it is anything urgent as the index of suspicion is low, but nonetheless this does need to be followed closely given what appears to be the enlargement of the cyst. I shall check a CA 19-9 level. Once we have completed the colonoscopy I will plan to check a follow-up MRI of the pancreas later this year. Based on that result i will then discuss sending her for an evaluation for an endoscopic ultrasound and aspiration of the cyst down at [facility] with one of the GI doctors there if they think it is appropriate based on their evaluation of her imaging studies. Tomas was comfortable with this plan. Thank you again for allowing me to participate in Tomas's care. I shall continue to keep you advised of her progress. 08/12/2024 Colon cancer screening (ICD-10 - Z12.11) Overall, Tomas appears quite well. She is not having any new or worrisome GI complaints. I did recommend a colonoscopy for screening purposes given her last exam being in 2012. We did review the rationale for this in regard to colon cancer prevention. Full consent is obtained for this, including risks of bleeding and perforation. The procedure will be done with monitored anesthesia care. In regard to the history of pancreatic cysts, this certainly seems to represent IPMN given her excellent clinical appearance, the description of the appearance of the cysts on the imaging studies,, and longevity of the cysts being present. However, the enlargement of the cyst in the head of the pancreas over the last number of years is somewhat concerning and may require an endoscopic ultrasound and aspiration for definitive evaluation. I do not think it is anything urgent as the index of suspicion is low, but nonetheless this does need to be followed closely given what appears to be the enlargement of the cyst. I shall check a CA 19-9 level. Once we have completed the colonoscopy I will plan to check a follow-up MRI of the pancreas later this year. Based on that result i will then discuss sending her for an evaluation for an endoscopic ultrasound and aspiration of the cyst down at [facility] with one of the GI doctors there if they think it is appropriate based on their evaluation of her imaging studies. Tomas was comfortable with this plan. Thank you again for allowing me to participate in Tomas's care. I shall continue to keep you advised of her progress. Plan Of Treatment Pending Test Test Name Order Date COLONOSCOPY 08/12/2024 CA 19-9 08/12/2024 Future Test Test Name Order Date COLONOSCOPY 08/14/2012 Next Appt Details Provider Name:Quinton Hale , 11/10/2024 10:30:00 AM, [address] [place] [address] , [place], [place], [id number], Insurance Providers Payer Name Payer Address Payer Phone Subscriber Number Group Number Insured Name Patient Relationship to Insured Coverage Start Date Coverage End Date [facility] [address] [place], [place] [id number] SIMON TOMAS Self - patient is the insured Medical (General) History Medical History History ICD Code HTN Hypothyroidism Denies UT,DM,CVA,Lung disease,renal dise ase Colonoscopy in 01/2001- neg for polyps Negative colonoscopy in 2012 other than a hyperplastic polyp Pancreatic cysts seen on gibran ging studies in 2015 and 2022, including a MRI. These are felt to represent benign IPMN. The largest cyst in the head of the pancreas did enlarge overall to 3.6 cm in March 2024 compared to 3.0 cm in 2022 and 1.7 cm in 2015. Gallbladder ultrasound was negative for gallstones in 2022 Surgical History Surgery Date(Month/Year) cataract surgery oral surgery 2021 [facility] 1999 Partial thyroidectomy 1998
--- OUTSIDE RECORDS SUMMARY | 2024-09-29 14:27 | XMS_ITS | Patient Health Record ---
Author Organization Arsen Palacios MD Address [address] [place], [place] [id number] Care Team Providers Care Janitor Head Name Role Phone Arsen Palacios Primary Care Provider [phone] Allergies No Known Allergies Results Component Value Reference Range Notes Complete Blood Count Auto Di ff Reviewed date:10/02/2023 12:26:27 PM Interpretation: Performing Lab:[facility], [address] [place] [phone] Notes/Report: White Blood Count 5.8 4.8-10.8 X10*3/uL Red Blood Count 4.68 4.20-5.50 X10*6/uL Hemoglobin 13.5 12.0-16.0 g/dl Hematocrit 40.5 37.0-47.0 % Mean Corpuscular Volume 86.5 80.0-98.0 fL Mean Corpuscular Hemoglobin 28.8 27.0-33.0 pg Mean Corpuscular HGB Conc 33.3 31.0-35.0 g/dl Red Cell Distribution Width 13.0 11.0-16.0 % Platelet Count 169 160-400 X10*3/uL Mean Platelet Volume 11.7 9.4-12.3 fL Neutrophils Percent Auto 51.8 45-73 % Imm Gran Pct Auto 0.3 0.0-0.4 % Lymphocytes Percent Auto 33.6 20-40 % Monocytes Percent Auto 9.3 2-11 % Eosinophils Percent Auto 4.0 0-4 % Basophils Percent Auto 1.0 0-2 % NRBC Pct Auto 0.0 0.0-0.2 /100WBC Neutrophils Absolute Auto 3.0 2.0-8.3 x10*3/uL Imm Gran Abs Auto 0.02 0.00-0.03 X10*3/uL Lymphocytes Absolute Auto 2.0 1.2-4.9 X10*3/uL Monocytes Absolute Auto 0.5 0.1-1.2 X10*3/uL Eosinophils Absolute Auto 0.2 0.0-0.4 X10*3/uL Basophils Absolute Auto 0.1 0.0-0.2 X10*3/uL NRBC Abs Auto 0.000 0.0-0.012 X10*3/uL Comprehensive [place]. Panel Fa st Reviewed date:10/02/2023 05:11:32 PM Interpretation: Performing Lab:[address] [phone] Notes/Report: Sodium 140 135-145 mmol/L Potassium 3.9 3.3-5.1 mmol/L Chloride 108 96-108 mmol/L Carbon Dioxide 24 22-29 mmol/L Anion Gap 12 12-20 Blood Urea Nitrogen 19 9-16 mg/dL Creatinine 1.00 0.5-1.4 mg/dL Estimated Glomerular Filt Rate 55 NOTE: For -Bahamian individuals, multiply the result by 1.210. Chronic Kidney Disease: Estimated GFR < 60 mL/min/1.73m2 Severe Kidney Disease: Estimated GFR < 15 mL/min/1.73m2 Glucose Fasting 99 60-99 mg/dL Calcium 9.4 8.4-10.2 mg/dL Bilirubin Total 0.6 0.0-1.0 mg/dL Aspartate Amino Transferase 22 5-31 U/L Alanine Aminotransferase 15 0-31 U/L Total Protein 6.9 6.5-8.0 g/dL Albumin Level 4.2 3.5-5.0 g/dL Alkaline Phosphatase 74 39-117 U/L Lipid Panel Reviewed date:10/02/2023 01:33:35 PM Interpretation: Performing Lab:[address] [phone] Notes/Report: Triglycerides 139 <150 mg/dL Desirable Triglyceride: less than 150 mg/dL Borderline High Triglyceride 150-199 mg/dL High Triglyceride: 200-499 mg/dL Very High Triglyceride: greater than or equal to 5OO mg/dL Cholesterol 241 <200 mg/dL Desirable Cholesterol: less than 200 mg/dL Borderline High Cholesterol: 200-239 mg/dL High Cholesterol: greater than 239 mg/dL LDL Cholesterol Calculated 165 <100 mg/dL Desirable LDL: less than 100 mg/dL Near Optimal/Above Optimal LDL: 110-129 mg/dL Borderline High LDL: 130-159 mg/dL High LDL: 160-189 mg/dL Very High LDL: greater than or equal to 190 mg/dL HDL Cholesterol 49 >40 mg/dL Desirable HDL: greater than 40 mg/dL Note: This HDL assay may give artificially low results in patients with liver disease. Vitamin D 25-OH Total Reviewed date:10/02/2023 01:33:47 PM Interpretation: Performing Lab:[address] [phone] Notes/Report: Vitamin D 25-OH Total 34.7 >30 ng/mL Health Based Reference Values* < 20 ng/mL Deficient 20-30 ng/mL Insufficient > 30 ng/mL Sufficient *Aurea MACK. N Engl J Med. 2007;357:266-280 Care must be taken in interpreting Vitamin D results from different laboratories and methodologies. Published data demonstrated that results from patients undergoing hemodialysis may show a negative bias when tested with various automated 25-OH vitamin D assays when compared to LC-MS/MS. When testing samples from patients whose predominant form of Vitamin D is Vitamin D2, such as patients receiving Vitamin D2 supplementation, results that are subtherapeutic should be confirmed with another method such as LC-MS/MS. TSH reflex Free T4 Reviewed date:10/02/2023 01:32:04 PM Interpretation: Performing Lab:[address] [phone] Notes/Report: TSH reflex Free T4 2.12 0.32-4.0 uIU/mL Microalbumin, Random Reviewed date:10/02/2023 01:49:01 PM Interpretation: Performing Lab:[address] [phone] Notes/Report: Creatinine Urine 145.80 Microalbumin Urine 8.0 Microalbum/Creatinine Ratio Ur 5.4 <30 ug/mg cr Albumin/Creatinine Ratio Reference Ranges: Normal: < 30 ug/mg creatinine Microalbuminuria: 30 - 300 ug/mg creatinine Clinical Albuminuria: > 300 ug/mg creatinine Hemoglobin A1c Reviewed date:10/02/2023 12:30:27 PM Interpretation: Performing Lab:[facility], [address] [place] [phone] Notes/Report: Hemoglobin A1c % 5.7 <6.0 % Hemoglobin A1C Reference Range Adults: 4.8 - 6.0 % Non diabetic: < 6.0 % Goal: < 7.0 % Additional Action Suggested: > 8.0 % Note: Hemoglobin A1c results are invalid for patients with abnormal amounts of HbF. Blood transfusions may impact the HbA1c concentration in the patient sample. Estimated Average Glucose 117 eAG = Estimated average glucose which is %A1C expressed as average glucose, using the formula of the I2O-Nbwssak Average Glucose study (ADAG), Diabetes Care, Vol.31,#8, Oct. 2007 UA ClnCatch+Micro w/rflx Cul t Reviewed date:10/02/2023 05:12:39 PM Interpretation: Performing Lab:[facility], [address] [place] [phone] Notes/Report: Urine, Clean Catch Color Urine Yellow Appearance Urine Cloudy PH 5.5 5.0-9.0 Glucose Urine UA Negative Negative mg/dL Urine Blood Negative Negative Specific [place] - Urine 1.025 1.005-1.025 Urine Protein Negative Neg-Trace mg/dL Urine Ketones Negative Negative mg/dL Nitrite Urine Positive Negative Leukocyte Esterase Urine Moderate (2+) Negative RBC Urine 0-2 0-2 /HPF WBC Urine 6-10 0-5 /HPF Squamous Epithelial Cell Urine 6-10 0-2 /HPF Bacteria Urine 4+ None Seen Hyaline Casts Urine 0-2 0-2 /LPF Occult Blood, Stool, Guaiac Reviewed date:10/16/2023 02:52:58 PM Interpretation:Negative Performing Lab: Notes/Report: Negative Occult Blood, Stool, Guaiac Neg Hold Gold Reviewed date:10/02/2023 12:30:04 PM Interpretation: Performing Lab:[facility], [address] [place] [phone] Notes/Report: Hold Gold See Note Specimen held untested for 24 hours; Call to request Chemistry testing. Urine Culture Reviewed date:10/04/2023 12:47:58 PM Interpretation: Performing Lab:[facility], [address] [place] [phone] Notes/Report: Urine Culture Report Result Urine Culture > 100,000 cfu/ml Urine Culture Mixed bacterial malka a characteristic of Urine Culture urogenital contamination. Reason For Referral Reason pancreatic cyst Diagnosis [...] Referral Priority Routine Referral Appointment Date 04/03/2024 Medications Medication SIG (Take, Route, Frequency, Duration) [...] yane th once daily for 90 Active Levothyroxine Sodium 75 MCG Take 1 tablet by mouth once daily for 90 Active oxyCODONE HCl 5 MG 1 tablet as needed Orally every 6 hrs Not-Taking Immunizations Vaccine Route Administration Date Status Comme nts Flu Vaccine IM Intramuscular 03/18/2012 Administered zFluzone Quadrivalent IM Intramuscular 01/21/2015 Administ ered PPSV23 (Pnemovax) IM Intramuscular 08/14/2016 Administered Fluarix Quadrivalent Unknown 02/02/2017 Administered HM C Prevnar 13 IM Intramuscular 03/18/2018 Administered SARS-COV-2 Pfizer Unknown 06/19/2020 Administered SARS-COV-2 Pfizer Unknown 07/10/2020 Administered SARS-COV-2 Pfizer Unknown 02/14/2021 Administered [facility] Fluarix Quadrivalent - 150 IM Intramuscular 11/13/2023 Adm inistered Fluarix Quadrivalent Unknown 03/08/2018 Refused Fluarix Quadrivalent Unknown 03/23/2020 Refused Social History Tobacco Use: Social History Observation Description Date Details (start date - stop date) Never Smoker NA - NA Tobacco Use/Smoking Question Answer Notes Patient is a nonsmoker Additional Findings: Tobacco Non-User Cu rrent non-smoker, currently using no form of tobacco Alcohol Screen Question Answer Notes Did you have a drink containing alcohol in the p ast year? 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) Active confirmed Problem 60008281 Essential hypert ension (I10) Active confirmed Problem 227574118 Acquired hypothy roidism (E03.9) Active confirmed Problem 9542244 Prediabetes (R73.09) Active confirmed Problem 413103443 S/P complete hysterectomy (Z90.710) Active confirmed Problem 684870603 Pure hypercholesterolemia (E78.00) Active confirmed Problem 320693368 Age-related inci pient cataract, unspecified laterality (H25.099) Active confirmed Problem 823041240 Age-related inci pient cataract of right eye (H25.091) Active confirmed Vital Signs Blood pressure diastolic 76 mm Hg 04/29/2024 koby ght is down 2 pounds since 03-20-24 Height 67 in 04/29/2024 weight is down 2 pounds since 03-20-24 Blood pressure systolic 124 mm Hg 04/29/2024 weig ht is down 2 pounds since 03-20-24 Weight 179 lbs 04/29/2024 weight is down 2 pounds since 03-20-24 BMI 28.03 kg/m2 04/29/2024 weight is down 2 pounds since 03-20-24 Encounters Encounter Location Date Provider Diagnosis Arsen Palacios MD [address] [place] [address] Drive [address] [place], [place] [phone] 10/02/2023 Arsen Palacios Blood tests for rout ine general physical examination Z00.00 ; Essential hypertension I10 ; Prediabetes R73.09 ; Vitamin D deficiency E55.9 ; Acquired hypothyroidism E03.9 and Pure hypercholesterolemia E78.00 Arsen Palacios MD [address] [place] [id number] 11/13/2023 Arsen Palacios Encounter for immuni zation Z23 Arsen Palacios MD [address] [place] [id number] 10/16/2023 Arsen Palacios Essential hypertensi on I10 ; Acquired hypothyroidism E03.9 ; Prediabetes R73.09 ; Pure hypercholesterolemia E78.00 ; Colon cancer screening Z12.11 and Depression screening Z13.31 Arsen Palacios MD [address] [place] [id number] 03/20/2024 Arsen Palacios Pancreatic cyst K86. 2 Arsen Palacios MD [address] [id number] 04/29/2024 Arsen Palacios Pancreatic cyst K86. 2 Arsen Palacios MD [address] [place] [address] [address] [id number] 02/19/2024 Arsen Palacios MD [address] [place] [id number] 03/20/2024 Arsen Palacios Assessments Encounter Date Diagnosis (ICD Code) Assessment Notes Treatment Notes Treatment Clinical Notes Section Notes 10/02/[address]e general physical examination (ICD-10 - Z00.00) 10/02/2023 Essential hypertensi on (ICD-10 - I10) 11/13/2023 Encounter for immunization (ICD-10 - Z23) 10/16/2023 Essential hypertensi on (ICD-10 - I10) well controlled, will continue current regiment 10/16/2023 Acquired hypothyroid ism (ICD-10 - E03.9) well controlled, will continue current regiment 03/20/2024 Pancreatic cyst (ICD -10 - K86.2) will contact rayus to see [...] spent reviewing documentation, and counseling the patient. 04/29/2024 Pancreatic cyst (ICD -10 - K86.2) discussed notes form Dr Larsen, his findings and deiscion to observe for the short term 10/02/2023 Prediabetes (ICD-10 - R73.09) 10/16/2023 Prediabetes (ICD-10 - R73.09) good a1c, no need for medication at this time 10/02/2023 Vitamin D deficiency (ICD-10 - E55.9) 10/16/2023 Pure hypercholesterolemia (ICD-10 - E78.00) still a little high. has come down a little, will continue to monitor 10/02/2023 Acquired hypothyroid ism (ICD-10 - E03.9) 10/16/2023 Colon cancer screeni ng (ICD-10 - Z12.11) guaiac negative 10/02/2023 Pure hypercholesterolemia (ICD-10 - E78.00) 10/16/2023 Depression screening (ICD-10 - Z13.31) negative screen Plan Of Treatment Pending Test Test Name Order Date Electrocardiogram (EKG) 07/29/2015 Electrocardiogram (EKG) 08/18/2016 MR abdomen wo/w con 04/04/2022 MR MRCP 03/23/2022 Next Appt Details Provider Name:Arsen Gonzalez ier, 10/10/2024 07:00:00 AM, [address] [place] [address], [address], [phone], Provider Name:Arsen Kyle Carlos ier, 10/17/2024 09:30:00 AM, [address] [place] [address], [address], [phone], Insurance Providers Payer Name Payer Address Payer Phone Subscriber Number Group Number Insured Name Patient Relationship to Insured Coverage Start Date Coverage End Date [employer] [address] [place], [place] [id number] Lashae Castellon Self - patient is the insured MEDICARE [address]IC [address] [place] [address] [id number] Lashae Castellon Self - patient is the insured Medical (General) History Medical History History ICD Code 10/30/2012 - Colonoscopy due in 10 years hyerplastic polyp due 2022 2004 - total hysterectomy cardiac cath normal 2016 pt had all upper teeth pulled a nd has dentures Surgical History Surgery Date(Month/Year) complete hysterectomy 07/2004
[2024-11-06 13:26] VITALS: BMI 27.9
--- NOTE | 2024-11-07 11:48 | HO.ANESPROP2 ---
Documented by User: Sulma Hall NP 11/07/24 11:48 HPI - Anesthesia Eval Consult details Narrative: 69 yr old female for colonoscopy PMFSH Active Problems Active Problems: All Active Problems (Updated 11/06/24 @ 13:28 by Marni Mitchell RN) Screening for colorectal cancer (Acute) Pancreatic cyst (Acute) Past Medical History Medical History Hypothyroid HTN (hypertension) Family History Family History Mother Cancer of unknown origin Father Lung cancer Surgical History Surgical History H/O colonoscopy Hx of thyroidectomy Hx of hysterectomy History of dental surgery Hx of cataract surgery Social History Social History (Updated 11/06/24 @ 13:29 by Marni Mitchell RN) Household Members: Spouse Are you a primary healthcare science specialist to a significant other at home: No Do you presently have visiting nurse or other home services: No Alcohol intake: current Alcohol intake frequency: holidays/special occasions only Patient Tobacco Use Status: Never used Tobacco Use of substances other than those prescribed or required for medical reasons: No Have you been hit, kicked, punched, or otherwise hurt by someone within the past year? If so, by whom?: No Are you DNR?: No Advance Directives: No Advance Directives Information Provided: Yes Patient : No : No Poor oral hygiene: Yes Meds Allergies Allergy/AdvReac Type Severity Reaction Status Date / Time No Known Allergies (No Known Allergy Verified 11/10/24 08:43 Allergies*) Home Medications ?Medication ?Instructions ?Recorded ?Confirmed ?Last Taken ?Type levothyroxine 75 mcg tablet 75 mcg PO DAILY 04/03/24 11/10/24 11/10/24 History lisinopril 10 mg tablet 10 mg PO DAILY 04/03/24 11/10/24 11/10/24 History metoprolol succinate 50 mg 50 mg PO DAILY 04/03/24 11/10/24 11/10/24 History tablet,extended release 24 hr Exam Height,Weight and Vital Signs: Height 5 ft 7 in Weight 80.739 kg Documented by User: Matilda Kern MD 11/10/24 09:09 [facility] Past Medical History Medical History Hypothyroid HTN (hypertension) Family History Family History Mother Cancer of unknown origin Father Lung cancer Family history of problems with anesthesia: No Surgical History Surgical History H/O colonoscopy Hx of thyroidectomy Hx of hysterectomy History of dental surgery Hx of cataract surgery History of Problems with Anesthesia: No Social History Social History (Updated 11/06/24 @ 13:29 by Marni Mitchell RN) Household Members: Spouse Are you a primary healthcare science specialist to a significant other at home: No Do you presently have visiting nurse or other home services: No Alcohol intake: current Alcohol intake frequency: holidays/special occasions only Patient Tobacco Use Status: Never used Tobacco Use of substances other than those prescribed or required for medical reasons: No Have you been hit, kicked, punched, or otherwise hurt by someone within the past year? If so, by whom?: No Are you DNR?: No Advance Directives: No Advance Directives Information Provided: Yes Patient : No : No Poor oral hygiene: Yes Meds Allergies Allergy/AdvReac Type Severity Reaction Status Date / Time No Known Allergies (No Known Allergy Verified 11/10/24 08:43 Allergies*) Home Medications ?Medication ?Instructions ?Recorded ?Confirmed ?Last Taken ?Type levothyroxine 75 mcg tablet 75 mcg PO DAILY 04/03/24 11/10/24 11/10/24 History lisinopril 10 mg tablet 10 mg PO DAILY 04/03/24 11/10/24 11/10/24 History metoprolol succinate 50 mg 50 mg PO DAILY 04/03/24 11/10/24 11/10/24 History tablet,extended release 24 hr Exam Airway Mallampati Class: II (edntulous) TM Dist: >3cm Neck ROM: Full Heart: rrr Lungs: cta Assessment and Plan Assessment Anesthesia Assessment: Anesthesia Plan Discussed and Chart Reviewed Final Anesthetic Review Family History of Problems with Anesthesia: No History of Problems with Anesthesia: No NPO: Yes ASA Class: II Final Preanesthetic Review: No Changes in Pt Med Stat, Meds/Allgs Chart Reviewed and Consent Obtained/Reviewed Patient Risk: Low Procedure Risk: Low Anesthetic Plan Anesthetic Plan: MAC: Disposition: Standard PACU
[2024-11-10 08:39] VITALS: BP 152/70; PULSE 56; RESP 12; TEMP 36.9; O2SAT 97; BMI 27.1
[2024-11-10] MEDS: Lactated Ringers 1,000 ML 100 ML IVCONT (08:53)
[2024-11-10 11:05] VITALS: BP 117/63; PULSE 53; RESP 16; TEMP 36.7; O2SAT 96
--- NOTE | 2024-11-10 11:08 | PM.OP ---
Brief Operative Note Date of Service: 11/10/24 Pre-op diagnosis: Screening Post-op diagnosis: other (Polyps) Procedure: Colonoscopy to the cecum and TI with bx/removal of cecal polyp and cold snare polypectomy at 40cm. Surgeon: Quinton Hale MD Anesthesia: MAC Was an Dental Financial Coordinator used for this Procedure?: No Estimated blood loss (mL): 2.0 Pathology: other (A. Cecal polyp B. Polyp at 40cm) Condition: stable Disposition: PACU
[2024-11-10 11:20] VITALS: BP 132/71; PULSE 54; RESP 16; O2SAT 96
[2024-11-10 11:35] VITALS: BP 134/67; PULSE 54; RESP 18; TEMP 36.8; O2SAT 96
--- NOTE | 2024-11-10 11:56 | OP_ITS ---
DATE OF SERVICE: 11/10/2024 SURGEON: Quinton Hale MD INDICATIONS: The patient presents for evaluation of colorectal cancer screening. Full consent has been obtained from her for this, including risks of bleeding and perforation. PREOPERATIVE DIAGNOSIS: Colorectal cancer screening. POSTOPERATIVE DIAGNOSIS: PROCEDURE PERFORMED: ESTIMATED BLOOD LOSS: COMPLICATIONS: ANESTHESIA: Medication used, monitored anesthesia care. ASSISTANTS: SPECIMENS: POSTOPERATIVE DIAGNOSES: Colorectal cancer screening, small colon polyps, diverticulosis, and internal hemorrhoids. PROCEDURES PERFORMED: Colonoscopy to the cecum and terminal ileum with biopsy and removal of cecal polyp, and cold snare polypectomy.. DESCRIPTION OF PROCEDURE: The patient was placed in the left lateral decubitus position. The digital rectal exam revealed no abnormalities. The [employer] video pediatric colonoscope was entered into the rectum and advanced easily to the cecum. Once in the cecum, I did identify normal-appearing cecal pouch other than a 3 mm polyp, which was biopsied and completely removed with cold biopsy forceps. The remainder of the cecum including the appendiceal orifice appeared normal. The ileocecal valve appeared normal. The terminal ileum was cannulated and appeared normal. The scope withdrawn back in the colon. The scope was then slowly withdrawn assessing all mucosal surfaces carefully. Preparation was excellent. At 40 cm, there was a flat, but raised approximately 6 mm polyp, which was removed by cold snare polypectomy and recovered by suction. The polypectomy site appeared clean, without any sign of residual polyp nor significant bleeding. I did not visualize any other polyps, colitis, nor angiodysplasia. There was a moderate amount of sigmoid diverticulosis. In the rectum, scope was retroflexed visualizing internal hemorrhoids, but no other pathology. The rectal mucosa appeared normal. Scope was straightened and withdrawn from the patient. She tolerated the procedure well and was returned to the recovery area in stable condition. IMPRESSION: 1. Colon polyps. 2. Diverticulosis. 3. Internal hemorrhoids. PLAN: The results of the pathology will be checked. If either of these are tubular adenoma, I would recommend a followup colonoscopy in 5 years. If they both happen to be hyperplastic, then I do not think she would need any further screening colonoscopies given her age of 69. She will otherwise see me on a p.r.n. basis. She was advised not to use any aspirin and NSAIDs for 1 week. She does have a history of a pancreatic cyst, felt to be consistent with IPMN. I did advise her that I would recommend a repeat MRI of the pancreas by March 2025. This has all been discussed with her as well. MD RAMA Miranda/RIKI / [id number] MTDD
== END 2024-11-10 11:55 | disposition home or self-care (01) ==
PROVIDERS: PCP Internal Medicine; Visit Provider Internal Medicine
PROC: 0DJD8ZZ Inspection of Lower Intestinal Tract, Via Natural or Artificial Opening Endoscopic (ICD-10-PCS; CPT 45378; principal; 2024-11-10 09:40)
DX: Z12.11 Encounter for screening for malignant neoplasm of colon (principal); D12.0 Benign neoplasm of cecum; D12.5 Benign neoplasm of sigmoid colon; K57.30 Diverticulosis of large intestine without perforation or abscess without bleeding; K64.8 Other hemorrhoids; I10 Essential (primary) hypertension; E03.9 Hypothyroidism, unspecified; K86.2 Cyst of pancreas; D49.0 Neoplasm of unspecified behavior of digestive system; Z79.899 Other long term (current) drug therapy
CPT/HCPCS: 45385; 45380; 88305; J2704

== ENCOUNTER 2024-11-20 07:47 | Outpatient (REF) | payer MEDICARE, SELFPAY ==
--- OUTSIDE RECORDS SUMMARY | 2024-04-29 07:00 | XMS_ITS ---
Author Organization Arsen Palacios MD Address [address] [place] [phone] Care Team Providers Care Optics Technical Officer Name Role Phone Arsen Palacios Primary Care Provider [phone] Allergies No Known Allergies REASON FOR VISIT 4 week Medications Medication SIG (Take, Route, Frequency, Duration) Notes Start Date End Date Status Metoprolol Tartrate 50 MG 1 tablet with food Orally once a day Active Levothyroxine Sodium 75 MCG Take 1 tablet by mouth once daily Active Ibuprofen 800 MG 1 tablet Orally Thre e times a day for 30 day(s) 09/27/2015 Not-Taking Lisinopril 10 MG Take 1 tablet by yane th once daily for 90 Active oxyCODONE HCl 5 MG 1 tablet as needed Orally every 6 hrs Not-Taking Albuterol Sulfate HFA 108 (90 Base) MCG/ACT 1 puff as needed Inhalation every 4 hrs for 30 days 05/08/2022 Active Vital Signs Blood pressure systolic 124 mm Hg 04/29/19 25 Blood pressure diastolic 76 mm Hg 025 Height 67 in 04/29/2024 Weight 179 lbs 04/29/2024 BMI 28.03 kg/m2 04/29/2024 weight is down 2 pounds [facility] e 03-20-24 Encounters Encounter Location Date Provider Diagnosis Arsen Palacios MD [address] [place], [place] [phone] 04/29/2024 Arsen Palacios Pancreatic cyst K86.2 Assessments Encounter Date Diagnosis (ICD Code) Assessment Notes Treatment Notes Treatment Clinical Notes Section Notes 04/29/2024 Pancreatic cyst (ICD-10 - K86.2) discussed notes form Dr Rojas, his findings and deiscion to observe for the short term Plan Of Treatment Treatment Notes Assessment Notes Pancreatic cyst discussed notes form Dr Rojas, his findings and deiscion to observe for the short term Next Appt Details Provider Name:Arsen Kyle Carlos ier, 04/21/2025 07:30:00 AM, [address] [place] [address], Suite [facility], [place], [place], [phone], Provider Name:Arsen Wright Nadeemjones dyanar, 04/24/2025 09:00:00 AM, [address] [place] [address], [address], [phone], Provider Name:Arsen Wright Nadeemjones ier, 10/13/2025 07:15:00 AM, [address] [place] [address], [address], [phone], Provider Name:Arsen Gonzalez ier, 10/20/2025 09:30:00 AM, [address] [place] [address], [address], [phone], Progress Notes * Lashae CASTELLON MDOB:[birth year] (68 yo F)Acc No.[id number]:04/29/2024 Progress Notes Patient: Lashae BRANDT Provider: Bree Palacios MD :1955 A ge:68 Y S ex:Female Date:04/29/2024 Address:[facility] [id number] Subjective: * Chief Complaints: * 4 week * HPI: S ymptom(s): patient is a 68 yo female here for 4 week follow up visit, saw dr rojas and he wants to wait until next year and repeat. * ROS: G eneral/Constitutional: Denies C hills. D enies F atigue. D enies F ever. D enies H eadache. E NT: Patient denies d ecreased sense of smell, any loss of taste, sore throat. D enies S ore throat. R espiratory: Denies C ough. D enies S hortness of breath at rest. D enies S hortness of breath with exertion. G astrointestinal: Denies D iarrhea. D enies N ausea. M usculoskeletal: Patient denies m uscle aches. P eripheral Vascular: Patient denies r ed and blue toes. * Medical History: * Surgical History: * Hospitalization/Major Diagno stic Procedure: * Medications: T akingAlbuterol Sulfate HFA 108 (90 Base) MCG/ACT Aerosol Solution 1 puff as needed Inhalation every 4 hrs Metoprolol Tartrate 50 MG Tablet 1 tablet with food Orally once a day Levothyroxine Sodium 75 MCG Tablet Take 1 tablet by mouth once daily Lisinopril 10 MG Tablet Take 1 tablet by mouth once daily Taking Albuterol Sulfate HFA 108 (90 Base) MCG/ACT Aerosol Solution 1 puff as needed Inhalation every 4 hrs Taking Metoprolol Tartrate 50 MG Tablet 1 tablet with food Orally once a day Taking Levothyroxine Sodium 75 MCG Tablet Take 1 tablet by mouth once daily Taking Lisinopril 10 MG Tablet Take 1 tablet by mouth once daily Not- Taking/PRNoxyCODONE HCl 5 MG Tablet 1 tablet as needed Orally every 6 hrs Ibuprofen 800 MG Tablet 1 tablet Orally Three times a day Medication List reviewed and reconciled with the patientNot-Taking/PRN oxyCODONE HCl 5 MG Tablet 1 tablet as needed Orally every 6 hrs Not-Taking/PRN Ibuprofen 800 MG Tablet 1 tablet Orally Three times a day Medication List reviewed and reconciled with the patient * Allergies: N .K.D.A.yes[Allergies Verified] Objective: * Vitals: H t: 67, Wt: 179, BMI:28.03, BP:124/76, Wt-k.19. weight is down 2 pounds since 03-20-24. * Examination: G eneral Examination: GENERAL APPEARANCE: a lert, well hydrated, in no distress.? HEAD: n ormocephalic. SKIN: g ood turgor. HEART: r egular rate and rhythm, no murmurs, rubs, gallops.? LUNGS: n o wheezes, rales, rhonchi, good air movement, clear to auscultation bilaterally. Assessment: * Assessment: 1. P ancreatic cyst - K86.2 (Primary) Plan: * Treatment: * Procedure Codes: * * Sign off status: Completed true * Provider: Bree Palacios MD Date: 04/29/2024 Generated for Yunior crowley/Bolivar/Sukiransmitting on: 0 11/20/2024 07:54 AM EDT History and Physical Notes * HPI (History of Present Illness) Category Sub-Category Detail Notes Category Not es Symptom(s) patient is a 68 yo female here for 4 week follow up visit, saw dr rojas and he wants to wait until next year and repeat Examination Category Sub-Category Detail Notes Category Not es General Examination GENERAL APPEARANCE: alert, w ell hydrated, in no distress HEAD: normocephalic HEART: regular rate and rhy thm, no murmurs, rubs, gallops LUNGS: no wheezes, rales, r honchi, good air movement, clear to auscultation bilaterally SKIN: good turgor
--- OUTSIDE RECORDS SUMMARY | 2024-10-10 04:45 | XMS_ITS ---
Author Organization Arsen Palacios MD Address [address] [place], [place] [id number] Care Team Providers Care Dermatology Sales Representative Name Role Phone Arsen Palacios Primary Care Provider Results Component Value Reference Range Notes Complete Blood Count Auto Di ff Reviewed date:10/10/2024 04:52:09 PM Interpretation: Performing Lab:[facility], [address] [place] [phone] Notes/Report: White Blood Count 5.3 4.8-10.8 X10*3/uL Red Blood Count 4.52 4.20-5.50 X10*6/uL Hemoglobin 13.0 12.0-16.0 g/dl Hematocrit 39.1 37.0-47.0 % Mean Corpuscular Volume 86.5 80.0-98.0 fL Mean Corpuscular Hemoglobin 28.8 27.0-33.0 pg Mean Corpuscular HGB Conc 33.2 31.0-35.0 g/dl Red Cell Distribution Width 13.2 11.0-16.0 % Platelet Count 145 160-400 X10*3/uL Mean Platelet Volume 11.6 9.4-12.3 fL Neutrophils Percent Auto 48.8 45-73 % Imm Gran Pct Auto 0.4 0.0-0.4 % Lymphocytes Percent Auto 36.4 20-40 % Monocytes Percent Auto 8.9 2-11 % Eosinophils Percent Auto 4.4 0-4 % Basophils Percent Auto 1.1 0-2 % NRBC Pct Auto 0.0 0.0-0.2 /100WBC Neutrophils Absolute Auto 2.6 2.0-8.3 x10*3/u L Imm Gran Abs Auto 0.02 0.00-0.03 X10*3/uL Lymphocytes Absolute Auto 1.9 1.2-4.9 X10*3/u L Monocytes Absolute Auto 0.5 0.1-1.2 X10*3/uL Eosinophils Absolute Auto 0.2 0.0-0.4 X10*3/u L Basophils Absolute Auto 0.1 0.0-0.2 X10*3/uL NRBC Abs Auto 0.000 0.0-0.012 X10*3/uL Comprehensive [place]. Panel Fa Reviewed date:10/11/2024 04:53:40 PM Interpretation: Performing Lab:[facility], [address] [place] [phone] Notes/Report: Sodium 140 135-145 mmol/L Potassium 3.9 3.3-5.1 mmol/L Chloride 107 96-108 mmol/L Carbon Dioxide 25 22-29 mmol/L Anion Gap 12 12-20 Blood Urea Nitrogen 18 9-16 mg/dL Creatinine 0.98 0.5-1.4 mg/dL Estimated Glomerular Filt Rate 56 Chronic Kidney Disease: Estimated GFR < 60 mL/min/1.73m2 Severe Kidney Disease: Estimated GFR < 15 mL/min/1.73m2 Glucose Fasting 95 60-99 mg/dL Calcium 8.9 8.4-10.2 mg/dL Bilirubin Total 0.9 0.0-1.0 mg/dL Aspartate Amino Transferase 30 5-31 U/L Alanine Aminotransferase 18 0-31 U/L Total Protein 6.8 6.5-8.0 g/dL Albumin Level 4.2 3.5-5.0 g/dL Alkaline Phosphatase 71 39-117 U/L Liver Panel Reviewed date:10/10/2024 04:20:36 PM Interpretation: Performing Lab:[facility], [address] [place] [phone] Notes/Report: Bilirubin Direct 0.2 0.0-0.5 mg/dL Lipid Panel Reviewed date:10/10/2024 04:19:16 PM Interpretation: Performing Lab:[facility], [address] [place] [phone] Notes/Report: Triglycerides 147 <150 mg/dL Desirable Triglyceride: less than 150 mg/dL Borderline High Triglyceride 150-199 mg/dL High Triglyceride: 200-499 mg/dL Very High Triglyceride: greater than or equal to 5OO mg/dL Cholesterol 246 <200 mg/dL Desirable Cholesterol: less than 200 mg/dL Borderline High Cholesterol: 200-239 mg/dL High Cholesterol: greater than 239 mg/dL LDL Cholesterol Calculated 169 <100 mg/dL Desirable LDL: less than 100 mg/dL Near Optimal/Above Optimal LDL: 110-129 mg/dL Borderline High LDL: 130-159 mg/dL High LDL: 160-189 mg/dL Very High LDL: greater than or equal to 190 mg/dL HDL Cholesterol 48 >40 mg/dL Desirable HDL: greater than 40 mg/dL Note: This HDL assay may give artificially low results in patients with liver disease. Vitamin D 25-OH Total Reviewed date:10/10/2024 04:19:26 PM Interpretation: Performing Lab:[facility], [address] [place] [phone] Notes/Report: Vitamin D 25-OH Total 39.6 >30 ng/mL Health Based Reference Values* < 20 ng/mL Deficient 20-30 ng/mL Insufficient > 30 ng/mL Sufficient *Aurea MACK. N Engl J Med. 2007;357:266-280 There is no well-established upper level of normal vitamin D levels. Some laboratories use 50 ng/mL as an upper limit of normal. However, toxicity is patient-dependent and may occur at any level. Careful correlation with the patient's presentation is necessary and, if there is concern for vitamin D toxicity, treatment should be considered irrespective of the serum level. Care must be taken in interpreting Vitamin [...] confirmed with another method such as LC-MS/MS. Microalbumin, Random Reviewed date:10/10/2024 04:37:58 PM Interpretation: Performing Lab:[address] [phone] Notes/Report: Creatinine Urine 123.99 Microalbumin Urine 8.0 Microalbum/Creatinine Ratio Ur 6.4 <30 ug/mg cr Albumin/Creatinine Ratio Reference Ranges: Normal: < 30 ug/mg creatinine Microalbuminuria: 30 - 300 ug/mg creatinine Clinical Albuminuria: > 300 ug/mg creatinine Hemoglobin A1c Reviewed date:10/10/2024 04:35:19 PM Interpretation: Performing Lab:[address] [phone] Notes/Report: Hemoglobin A1c % 5.8 <6.0 % Hemoglobin A1C Reference Range Adults: 4.8 - 6.0 % Non diabetic: < 6.0 % Goal: < 7.0 % Additional Action Suggested: > 8.0 % Note: Hemoglobin A1c results are invalid for patients with abnormal amounts of HbF. Blood transfusions may impact the HbA1c concentration in the patient sample. Estimated Average Glucose 120 eAG = Estimated average glucose which is %A1C expressed as average glucose, using the formula of the E9R-Einfddq Average Glucose study (ADAG), Diabetes Care, Vol.31,#8, Oct. 2007 UA ClnCatch+Micro w/rflx Cul t Reviewed date:10/13/2024 09:16:19 AM Interpretation: Performing Lab:[address] [phone] Notes/Report: [id number] Urine, Clean Catch Color Urine Yellow Appearance Urine Hazy PH 6.0 5.0-9.0 Glucose Urine UA Negative Negative mg/dL Urine Blood Small (1+) Negative Specific [place] - Urine >= 1.030 1.005-1.025 Urine Protein Negative Neg-Trace mg/dL Urine Ketones Negative Negative mg/dL Nitrite Urine Positive Negative Leukocyte Esterase Urine Moderate (2+) Negative RBC Urine 0-2 0-2 /HPF WBC Urine 6-10 0-5 /HPF Squamous Epithelial Cell Urine 3-5 0-2 /HPF Bacteria Urine 3+ None Seen Hyaline Casts Urine 0-2 0-2 /LPF REASON FOR VISIT yearly fasting labs Encounters Encounter Location Date Provider Diagnosis Arsen Palacios MD [address] [place] [address] [place] [phone] 10/10/2024 Arsen Palacios Essential hypertensi on I10 ; Pure hypercholesterolemia E78.00 and Vitamin D deficiency E55.9 Assessments Encounter Date Diagnosis (ICD Code) Assessment Notes Treatment Notes Treatment Clinical Notes Section Notes 10/10/2024 Essential hypertensi on (ICD-10 - I10) 10/10/2024 Pure hypercholesterolemia (ICD-10 - E78.00) 10/10/2024 Vitamin D deficiency (ICD-10 - E55.9) Plan Of Treatment Next Appt Details Provider Name:Arsen Gonzalez ier, 04/21/2025 07:30:00 AM, [address] [place] [address], [address] [place] [address], [phone], Provider Name:Arsen Gonzalez iesanya, 04/24/2025 09:00:00 AM, [address] [place] [address], [address], [phone], Provider Name:Arsen Gonzalez ier, 10/13/2025 07:15:00 AM, [address] [place] [address], [address], [phone], Provider Name:Arsen Gonzalez ier, 10/20/2025 09:30:00 AM, [address] [place] [address], [address], [phone], Progress Notes * Lashae CASTELLON MDOB:[birth year] (69 yo F)Acc No.[id number]:10/10/2024 Progress Note Patient: Lashae BRANDT Provider: Bree Palacios MD :1955 A ge:69 Y S ex:Female Date:10/10/2024 Address:[facility] [id number] Subjective: * Chief Complaints: * 1 . Yearly fasting labs. * Medical History: Objective: * Vitals: Assessment: * Assessment: 1. E ssential hypertension - I10 (Primary) 2 . P ure hypercholesterolemia - E78.00 3 . V itamin D deficiency - E55.9 Plan: * Treatment: 2. P ure hypercholesterolemia L AB: Complete Blood Count Auto Diff (Collection Date & Time - 10/10/2024 07:00 AM) L AB: Comprehensive [place]. Panel Fast (Collection Date & Time - 10/10/2024 07:00 AM) L AB: Liver Panel (Collection Date & Time - 10/10/2024 07:00 AM) L AB: Lipid Panel (Collection Date & Time - 10/10/2024 07:00 AM) L AB: Vitamin D 25-OH Total (Collection Date & Time - 10/10/2024 07:00 AM) L AB: Microalbumin, Random (Collection Date & Time - 10/10/2024 07:00 AM) L AB: Hemoglobin A1c (Collection Date & Time - 10/10/2024 07:00 AM) L AB: UA ClnCatch+Micro w/rflx Cult (Collection Date & Time - 10/10/2024 07:00 AM) 3. V itamin D deficiency L AB: Complete Blood Count Auto Diff (Collection Date & Time - 10/10/2024 07:00 AM) L AB: Comprehensive [place]. Panel Fast (Collection Date & Time - 10/10/2024 07:00 AM) L AB: Liver Panel (Collection Date & Time - 10/10/2024 07:00 AM) L AB: Lipid Panel (Collection Date & Time - 10/10/2024 07:00 AM) L AB: Vitamin D 25-OH Total (Collection Date & Time - 10/10/2024 07:00 AM) L AB: Microalbumin, Random (Collection Date & Time - 10/10/2024 07:00 AM) L AB: Hemoglobin A1c (Collection Date & Time - 10/10/2024 07:00 AM) L AB: UA ClnCatch+Micro w/rflx Cult (Collection Date & Time - 10/10/2024 07:00 AM) * Procedure Codes: 3 6415 VENIPUNCT, ROUTINE* * * The named appointment provid er may or may not be the originator of this progress note, and it is not deemed complete until electronically signed by the appointment provider. Sign off status: Pending * Provider: Bree Palacios MD Date: 0 10/10/2024 Generated for Yunior crowley/Bolivar/Jesenia on: 0 11/20/2024 07:54 AM EDT
--- OUTSIDE RECORDS SUMMARY | 2024-10-16 04:44 | XMS_ITS ---
Author Organization Arsen Palacios MD Address [address] [place] [phone] Care Team Providers Care Network Systems Consultant Name Role Phone Arsen Palacios Primary Care Provider [phone] Medications Medication SIG (Take, Route, Frequency, Duration) Notes Start Date End Date Status Cipro 250 MG 1 tablet Orally ever y 12 hrs for 3 day(s) 10/16/2024 Active Encounters Encounter Location Date Provider Diagnosis Arsen Palacios MD [address] [facility] [address] [place] [phone] 10/16/2024 Arsen Palacios Plan Of Treatment Medication Medication Name Sig Start Date Stop Date Notes Cipro 250 MG 1 tablet Orally every 12 hrs for 3 day(s) Next Appt Details Provider Name:Arsen bhagat, 04/21/2025 07:30:00 AM, [address] [place] [address], Suite [facility], [place], [place], [phone], Provider Name:Arsen bhagat, 04/24/2025 09:00:00 AM, [address] [place] [address], [address] [place] [address], [phone], Provider Name:Arsen bhagat, 10/13/2025 07:15:00 AM, [address] [place] [address], [address], [place], [place], [phone], Provider Name:Arsen bhagat, 10/20/2025 09:30:00 AM, [address] [facility], [address], [place], [phone], Progress Notes * Lashae CASTELLON MDOB:[birth year] (69 yo F)Acc No.[id number]:10/16/2024 Patient: Katarzyna WALTER Lashae Colón :1955 A ge:69 Y S ex:Female Address:[facility] [place] [address] * Refills Start Cipro Tablet, 250 MG, Orally, 6, 1 tablet, every 12 hrs, 3 day(s) * true * Date: Generated for Yunior crowley/Bolivar/Lorenasmitting on: 0 11/20/2024 07:53 AM EDT
--- OUTSIDE RECORDS SUMMARY | 2024-10-17 05:30 | XMS_ITS ---
Author Organization Arsen Palacios MD Address [address] [place], [place] [phone] Care Team Providers Care Manager Endoscopy Name Role Phone Arsen Palacios Primary Care Provider Allergies No Known Allergies Results Component Value Reference Range Notes TSH reflex Free T4 Reviewed date:10/17/2024 04:31:39 PM Interpretation: Performing Lab:[facility], [address] [place] [id number] Notes/Report: TSH reflex Free T4 1.24 0.32-4.0 [...] kg/m2 10/17/2024 weight is down 5 pounds [facility] e 04-29-24 Encounters Encounter Location Date Provider Diagnosis Arsen Palacios MD [address] [place] [address] [place] [phone] 10/17/2024 Arsen Palacios Annual physical exam Z00.00 [...] Up: 6 Months, Reason: Provider Name:Arsen bhagat, 04/21/2025 07:30:00 AM, [address] [place] [address], [place] [address], [place], [place], [phone], Provider Name:Arsen bhagat, 04/24/2025 09:00:00 AM, [address] [place] [address], [place] [address], [place], [place], [phone], Provider Name:Arsen Gonzalez ier, 10/13/2025 07:15:00 AM, [address] [place] [address], [place] [address], [place], [place], [phone], Provider Name:Arsen turpinr, 10/20/2025 09:30:00 AM, [address] [place] [address], [address], [phone], Progress Notes * Lashae CASTELLON MDOB:[birth year] (69 yo F)Acc No.[id number]:10/17/2024 Progress Notes Patient: Lashae BRANDT Provider: Bree Palacios MD :1955 A ge:69 Y S ex:Female Date:10/17/2024 Address:[address] [place] [address] Subjective: * Chief Complaints: * A nnual [...] Average Glucose 120 - mg/dL L ab:Comprehensive [place]. Panel Fast (Order Date - 10/10/2024) (Collection [...] Blood Small (1+) A Negative - Specific [place] - Urine >= 1.030 H 1.005-1.025 - [...] masses palpable. FEMALE GENITOURINARY: d one by nurse obgyn. MUSCULOSKELETAL: r ectal exam negative and guaiac [...] MD Date: 0 10/17/2024 Generated for Yunior crowley/Bolivar/Carleyitting on: 0 11/20/2024 07:53 AM EDT History and Physical Notes * [...] and guaiac negative FEMALE GENITOURINARY: done by nurse obgyn ORAL CAVITY: mucosa moist
--- OUTSIDE RECORDS SUMMARY | 2024-10-24 04:45 | XMS_ITS ---
Author Organization Arsen Palacios MD Address [address] [place] [phone] Care Team Providers Care Consulting Group Analyst Name Role Phone Philip Arsen Primary Care Provider Results Component Value Reference Range Notes UA ClnCatch+Micro w/rflx Cul t Reviewed date:10/26/2024 03:22:50 PM Interpretation: Performing Lab:[facility], [address] [place] [phone] Notes/Report: [id number] Urine, Clean Catch Color Urine Yellow Appearance Urine Clear PH 5.5 5.0-9.0 Glucose Urine UA Negative Negative mg/dL Urine Blood Negative Negative Specific Randolph - Urine 1.010 1.005-1.025 Urine Protein Negative Neg-Trace mg/dL Urine Ketones Negative Negative mg/dL Nitrite Urine Negative Negative Leukocyte Esterase Urine Negative Negative RBC Urine 0-2 0-2 /HPF WBC Urine 0-5 0-5 /HPF Squamous Epithelial Cell Urine 0-2 0-2 /HPF Bacteria Urine None Seen None Seen Hyaline Casts Urine 3-5 0-2 /LPF REASON FOR VISIT Post Care UA Encounters Encounter Location Date Provider Diagnosis Arsen Palacios MD [address] [place], [place] [phone] 10/24/2024 Arsen Bombardier UTI (urinary tract infection) N39.0 Assessments Encounter Date Diagnosis (ICD Code) Assessment Notes Treatment Notes Treatment Clinical Notes Section Notes 10/24/2024 UTI (urinary tract infection) (ICD-10 - N39.0) Plan Of Treatment Next Appt Details Provider Name:Arsen Gonzalez leola, 04/21/2025 07:30:00 AM, [address] [place] [address], [place] [address], [place], [place], [phone], Provider Name:Arsen Gonzalez leola, 04/24/2025 09:00:00 AM, [address] [place] [address], [place] [address], [place], [place], [phone], Provider Name:Arsen Gonzalez dyanar, 10/13/2025 07:15:00 AM, [address] [place] [address], [place] [address], [place], [place], [phone], Provider Name:Arsen Gonzalez dyanar, 10/20/2025 09:30:00 AM, [address] [place] [address], [address], [phone], Progress Notes * Lashae CASTELLON MDOB:[birth year] (69 yo F)Acc No.[id number]:10/24/2024 Progress Note Patient: Lashae BRANDT Provider: Bree Palacios MD :1955 A ge:69 Y S ex:Female Date:10/24/2024 Address:[address] [place], [place] [phone] Subjective: * Chief Complaints: * 1 . Post Care UA. * Medical History: Objective: * Vitals: Assessment: * Assessment: 1. U TI (urinary tract infection) - N39.0 (Primary) Plan: * Treatment: * * The named appointment provid er may or may not be the originator of this progress note, and it is not deemed complete until electronically signed by the appointment provider. Sign off status: Pending * Provider: Bree Palacios MD Date: 0 10/24/2024 Generated for Yunior crowley/Bolivar/eTransmitting on: 0 11/20/2024 07:53 AM EDT
--- OUTSIDE RECORDS SUMMARY | 2024-11-10 05:40 | XMS_ITS ---
Author Organization [facility] Address [address] [place] [address] Care Team Providers Care Engraver Jewelry Name Role Phone Arsen Palacios MD Primary Care Provider UnavaQuinton Garcia Unavailable [phone] REASON FOR VISIT screening Encounters Encounter Location Date Provider Diagnosis [facility] [address] [place] [phone] 11/10/2024 Quinton Hale Plan Of Treatment Next Appt Details Provider Name:Quinton Katarzyna Hale , 03/11/2025 02:40:00 PM, [address], [address], [place], [phone], Progress Notes * SIMON TOMASDOB:1955 (69 yo F)Acc No.[id number]:11/10/2024 COLON WITH MAC Patient: TOMAS BRANDT Provider: Pranay Hale MD :1955 A ge:69 Y S ex:Female Date:11/10/2024 Address:[address] [place] [address], [id number] Pcp:Arsen Palacios MD Subjective: * Chief Complaints: * 1 . Screening. * Medical History: Objective: * Vitals: Assessment: Plan: * Treatment: * * The named appointment provid er may or may not be the originator of this progress note, and it is not deemed complete until electronically signed by the appointment provider. Sign off status: Pending * Provider: Pranay Hale MD Date: 0 11/10/2024 Generated for Yunior crowley/Bolivar/Carleyitting on: 11/20/2024 07:54 AM EDT
--- OUTSIDE RECORDS SUMMARY | 2024-11-20 07:53 | XMS_ITS | Patient Health Record ---
Author Organization [facility] Address [address] [place] [address] Care Team Providers Care Accounting Manager Cpa Name Role Phone Philip BAR, Arsen Primary Care Provider Quinton Arshad [phone] Allergies No Known Allergies Results Component Value Reference Range Notes Pathology Reviewed date:11/11/2024 06:44:12 PM Interpretation: Performing Lab:[facility], [address] [place] [phone] Notes/Report: Reason For Referral No Information Medications Medication [...] Status Risk Notes Problem Feces contents abnormal (198977946) Heme + stool (792.1) Active confirmed Problem Colon cancer screening (789490657) Colon cancer screening (Z12.11) Active confirmed Problem Pancreatic cyst (98740233) Pancreatic cyst (K86.2) Active confirmed Problem Neoplasm of digestive system (920085842) IPMN (intraductal papillary mucinous neoplasm) (D49.0) Active confirmed Vital Signs Blood pressure diastolic 77 mm Hg 08/12/2024 Height 67 in 08/12/2024 Blood pressure systolic 111 mm Hg 08/12/2024 Weight 178 lbs 08/12/2024 BMI 27.88 kg/m2 08/12/2024 Procedures Procedure Date Ordered Date Performed Result Body Sit e COLONOSCOPY 08/12/2024 N/A Encounters Encounter Location Date Provider Diagnosis [facility] [address] [place], [place] [phone] 11/10/2024 Quinton Hale [facility] [address] [place] [address] 08/12/2024 Quinton Hale Pancreatic cyst K86.2 ; IPMN (intraductal papillary mucinous neoplasm) D49.0 and Colon cancer screening Z12.11 [facility] [address] [place] [address] 11/11/2024 Quinton Hale Assessments Encounter Date Diagnosis (ICD Code) Assessment [...] and aspiration of the cyst down at [facility] with one of the GI doctors [...] and aspiration of the cyst down at [facility] with one of the GI doctors [...] and aspiration of the cyst down at [facility] with one of the GI doctors [...] COLONOSCOPY 08/14/2012 Next Appt Details Provider Name:Quinton Colón Alexia , 03/11/2025 02:40:00 PM, [address] [place] [address], [address], [place], [address], Insurance Providers Payer Name Payer Address Payer Phone Subscriber Number Group Number Insured Name Patient Relationship to Insured Coverage Start Date Coverage End Date [facility] [address] [place], [place] [id number] [phone] [id number] MONTESTOMAS Garcia Self - patient is the insured Medical (General) History Medical History History ICD Code HTN Hypothyroidism Denies [place],DM,CVA,Lung disease,renal dise ase Colonoscopy in 01/2001- neg [...]
--- OUTSIDE RECORDS SUMMARY | 2024-11-20 07:54 | XMS_ITS | Patient Health Record ---
Author Organization Arsen Palacios MD Address [address] [place], [place] [id number] Care Team Providers Care [employer] Developer Name Role Phone Arsen Palacios Primary Care Provider [phone] Allergies No Known Allergies Results Component Value Reference Range Notes Complete Blood Count Auto Di ff Reviewed date:10/10/2024 04:52:09 PM Interpretation: Performing Lab:[facility], [address] [place] [phone] Notes/Report: White Blood Count 5.3 4.8-10.8 X10*3/uL [...] 0.0-0.2 /100WBC Neutrophils Absolute Auto 2.6 2.0-8.3 x10*3/uL Imm Gran Abs Auto 0.02 0.00-0.03 X10*3/uL Lymphocytes Absolute Auto 1.9 1.2-4.9 X10*3/uL Monocytes Absolute Auto 0.5 0.1-1.2 X10*3/uL Eosinophils Absolute Auto 0.2 0.0-0.4 X10*3/uL Basophils Absolute Auto 0.1 0.0-0.2 X10*3/uL NRBC Abs Auto 0.000 0.0-0.012 X10*3/uL Comprehensive [place]. Panel Fa st Reviewed date:10/11/2024 04:53:40 PM Interpretation: Performing Lab:[address] [phone] Notes/Report: Sodium 140 135-145 mmol/L Potassium 3.9 [...] Panel Reviewed date:10/10/2024 04:20:36 PM Interpretation: Performing Lab:[facility], [address] [place] [phone] Notes/Report: Bilirubin Direct 0.2 0.0-0.5 mg/dL Lipid Panel Reviewed date:10/10/2024 04:19:16 PM Interpretation: Performing Lab:[facility], [address] [place] [phone] Notes/Report: Triglycerides 147 <150 mg/dL Desirable Triglyceride: [...] Total Reviewed date:10/10/2024 04:19:26 PM Interpretation: Performing Lab:[facility], [address] [place] [phone] Notes/Report: Vitamin D 25-OH Total 39.6 >30 [...] Random Reviewed date:10/10/2024 04:37:58 PM Interpretation: Performing Lab:[address] [phone] Notes/Report: Creatinine Urine 123.99 Microalbumin Urine 8.0 Microalbum/Creatinine Ratio Ur 6.4 <30 ug/mg cr Albumin/Creatinine Ratio Reference Ranges: Normal: < 30 ug/mg creatinine Microalbuminuria: 30 - 300 ug/mg creatinine Clinical Albuminuria: > 300 ug/mg creatinine Hemoglobin A1c Reviewed date:10/10/2024 04:35:19 PM Interpretation: Performing Lab:[address] [phone] Notes/Report: Hemoglobin A1c % 5.8 <6.0 % [...] average glucose, using the formula of the I4M-Jelxynq Average Glucose study (ADAG), Diabetes Care, Vol.31,#8, Oct. 2007 UA ClnCatch+Micro w/rflx Cul t Reviewed date:10/13/2024 09:16:19 AM Interpretation: Performing Lab:[address] [phone] Notes/Report: [id number] Urine, Clean Catch Color Urine Yellow Appearance Urine Hazy PH 6.0 5.0-9.0 Glucose Urine UA Negative Negative mg/dL Urine Blood Small (1+) Negative Specific [place] - Urine >= 1.030 1.005-1.025 Urine Protein Negative Neg-Trace mg/dL Urine Ketones Negative Negative mg/dL Nitrite Urine Positive Negative Leukocyte Esterase Urine Moderate (2+) Negative RBC Urine 0-2 0-2 /HPF WBC Urine 6-10 0-5 /HPF Squamous Epithelial Cell Urine 3-5 0-2 /HPF Bacteria Urine 3+ None Seen Hyaline Casts Urine 0-2 0-2 /LPF UA ClnCatch+Micro w/rflx Cul t Reviewed date:10/26/2024 03:22:50 PM Interpretation: Performing Lab:[facility], [address] [place] [phone] Notes/Report: [id number] Urine, Clean Catch Color Urine Yellow Appearance Urine Clear PH 5.5 5.0-9.0 Glucose Urine UA Negative Negative mg/dL Urine Blood Negative Negative Specific [place] - Urine 1.010 1.005-1.025 Urine Protein Negative Neg-Trace mg/dL Urine Ketones Negative Negative mg/dL Nitrite Urine Negative Negative Leukocyte Esterase Urine Negative Negative RBC Urine 0-2 0-2 /HPF WBC Urine 0-5 0-5 /HPF Squamous Epithelial Cell Urine 0-2 0-2 /HPF Bacteria Urine None Seen None Seen Hyaline Casts Urine 3-5 0-2 /LPF TSH reflex Free T4 Reviewed date:10/17/2024 04:31:39 PM Interpretation: Performing Lab:[facility], [address] [place] [phone] Notes/Report: TSH reflex Free T4 1.24 0.32-4.0 uIU/mL Saida Davis Reviewed date:10/10/2024 04:58:02 PM Interpretation: Performing Lab:[facility], [address] [place] [phone] Notes/Report: Saida Davis See Note Specimen held untested for 24 hours; Call to request Chemistry testing. Urine Culture Reviewed date:10/16/2024 08:45:45 AM Interpretation: Performing Lab:[facility], [address] [place] [phone] Notes/Report: O:ESCCOL Escherichia coli Urine Culture Quant Urine Culture > 100,000 cfu/mL Ampicillin 8 Cefazolin (Urine) 4 Cefepime <=0.12 Ceftriaxone <=0.25 Ciprofloxacin <=0.06 Gentamicin <=1 Nitrofurantoin 32 Trimethoprim/Sulfametho xazole <=20 Hold Gold Reviewed date:10/17/2024 01:30:13 PM Interpretation: Performing Lab:[facility], [address] [place] [phone] Notes/Report: Saida Davis See Note Specimen held untested for 24 hours; Call to request Chemistry testing. Pathology Reviewed date:11/11/2024 05:07:12 PM Interpretation: Performing Lab:[facility], [address] [place] [address], [place] [address] Notes/Report: ------ Name: Lashae Castellon Age/Sex: 69/F : 1955 Unit#: [id number] Attend Dr: Quinton Hale MD Re11/10/24 Status : [facility] Location: [facility] Disch: ------ SPEC : [id number] RECD : 11/10/24 STATUS: ISABEL CAMEJO NUM: [id number] TAMMIE: 11/10/24-[address]: Quinton Hale MD ENTERED: 11/10/24-11 49 SP TYPE: Surgical OTHR DR: Arsen Palacios MD ORDERED: HE Stain/6, Gross Micro L4/2 Diagnosis A. Colon, cecum, polypectomy: Tubular adenoma; negative for high-grade dysplasia. B. Colon, polyp at 4 0 cm, polypectomy: Tubular adenoma; negative for high-grade dysplasia. Clinical History Pre-Op Dx: Screening Post-Op Dx: Colon po lyps, diverticulosis, hemorrhoids Microscopic Description Microscopic sections reviewed. Material Received A. Cecal polyp B. Colon polyp at 40 cm Gross Description Received in two parts. Part A: Received in formalin labeled cecal polyp? is a 0.25 cm guthrie-pink papular tissue fragment, submitted in toto in a cassette labeled A. Part B: Received in formalin labeled ?colon polyp at 40? is a 0.3 cm guthrie papular tissue fragment, submitted in toto in a cassette labeled B. CEDS IHC S/NG Disclaimer NOTE: Unless otherwi se stated, all tissue is formalin-fixed and paraffin-embedded. Some or all of the immunohistochemical tests reported herein may have been developed and their performance characteristics determined by [facility]. They have not been cleared or appr martell by the U.S. Food and Drug Administration (FDA). However, the FDA has determined that such clearance or approval is not necessary. This laboratory is certified under the Clinical Laboratory Improvement Amendments of 1988 (CLIA) as qualified to perform high comp lexity clinical laboratory testing. CONTINUED ON NEXT PAGE ------ Name: Lashae Castellon Age/Sex: 69/F : 1955 Unit#: [id number] Attend Dr: Quinton Hale MD Re11/10/24 Status : [facility] Location: [facility] Disch: ------ SPEC : [id number] RECD : 11/10/24113 STATUS: ISABEL CAMEJO NUM: [id number] TAMMIE: 11/10/24-[address]: Quinton Hale MD ENTERED: 11/10/24-11 49 SP TYPE: Surgical OTHR DR: Arsen Palacios MD ORDERED: HE Stain/6, Gross Micro L4/2 Copies To: Arsen Palacios MD [facility] [address] [place] [address] [place] [address] Quinton Hale MD [facility] [address] [place] [address] ------ Signed (signature on file) Audra Ramirez MD 11/11/24 1555 ------ END OF REPORT Reason For Referral Reason pancreatic cyst Diagnosis [...] 12 hrs for 3 day(s) 10/16/2024 Active Immunizations Vaccine Route Administration Date Status Comme [...] Problem Status W/U Status Risk Notes Problem 31305635 Vitamin D defici ency (E55.9) Active confirmed Problem 58041337 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) Active confirmed Problem 28514353 Essential hypert ension (I10) Active confirmed Problem 636919375 Acquired hypothy roidism (E03.9) Active confirmed Problem 4154475 Prediabetes (R73.09) Active confirmed Problem 942589655 S/P complete hysterectomy (Z90.710) Active confirmed Problem 449546220 Pure hypercholesterolemia (E78.00) Active confirmed Problem 221982185 Age-related inci pient cataract, unspecified laterality (H25.099) Active confirmed Problem 302104850 Age-related inci pient cataract of right eye (H25.091) Active confirmed Vital Signs Blood pressure diastolic 70 mm Hg 10/17/2024 koby ght is down 5 pounds since 04-29-24 Height 67 in 10/17/2024 weight is down 5 pounds since 04-29-24 Blood pressure systolic 122 mm Hg 10/17/2024 kobyg ht is down 5 pounds since 04-29-24 Weight 174 lbs 10/17/2024 weight is down 5 pounds since 04-29-24 BMI 27.25 kg/m2 10/17/2024 weight is down 5 pounds since 04-29-24 Encounters Encounter Location Date Provider Diagnosis Arsen Palacios MD [address] [place] [id number] 10/10/2024 Arsen Palacios Essential hypertensi on I10 ; Pure hypercholesterolemia E78.00 and Vitamin D deficiency E55.9 Arsen Palacios MD [address] [place] [id number] 10/24/2024 Arsen Palacios UTI (urinary tract infection) N39.0 Arsen Palacios MD [address] [place] [id number] 03/20/2024 Arsen Palacios Pancreatic cyst K86. 2 Arsen Palacios MD [address] [place] [id number] 04/29/2024 Arsen Palacios Pancreatic cyst K86. 2 Arsen Palacios MD [address] [place] [id number] 10/17/2024 Arsen Palacios Annual physical exam Z00.00 ; Essential hypertension I10 ; Pure hypercholesterolemia E78.00 ; Acquired hypothyroidism E03.9 ; Cervical rib Q76.5 ; Colon cancer screening Z12.11 and Depression screening Z13.31 Arsen Palacios MD [address] [place] [id number] 02/19/2024 Arsen Palacios MD [address] [place] [id number] 03/20/2024 Arsen Palacios MD [address] [place] [id number] 10/16/2024 Arsen Palacios Assessments Encounter Date Diagnosis (ICD Code) Assessment Notes Treatment Notes Treatment Clinical Notes Section Notes 10/10/2024 Essential hypertensi on (ICD-10 - I10) 10/24/2024 UTI (urinary tract infection) (ICD-10 - N39.0) 03/20/2024 Pancreatic cyst (ICD -10 - K86.2) [...] deiscion to observe for the short term 10/17/2024 Annual physical exam (ICD-10 - Z00.00) labs eviewed and discussed with patient 10/17/2024 Essential hypertensi on (ICD-10 - I10) well controlled, will continue current regiment 10/10/2024 Pure hypercholesterolemia (ICD-10 - E78.00) 10/17/2024 Pure hypercholesterolemia (ICD-10 - E78.00) won't take meds, advised on need to take medds, and diet 10/10/2024 Vitamin D deficiency (ICD-10 - E55.9) 10/17/2024 Acquired hypothyroid ism (ICD-10 - E03.9) [...] MRCP 03/23/2022 Next Appt Details Provider Name:Arsen bhagat, 04/21/2025 07:30:00 AM, [address] [place] [address], [address], [place], [place], [phone], Provider Name:Arsen Gonzalez ier, 04/24/2025 09:00:00 AM, [address], [address], [place], [place], [phone], Provider Name:Arsen Gonzalez ier, 10/13/2025 07:15:00 AM, [address], [address], [place], [place], [phone], Provider Name:Arsen Gonzalez ier, 10/20/2025 09:30:00 AM, [address], [address], [place], [place], [phone], Insurance Providers Payer Name Payer Address Payer Phone Subscriber Number Group Number Insured Name Patient Relationship to Insured Coverage Start Date Coverage End Date [employer] [facility] [address] [place], [place] [id number] [phone] [id number] Lashae Castellon Self - patient is the insured MEDICARE NHIC [address] [place] [address] [id number] Lashae Castellon Self - patient is the insured Medical (General) History Medical History History ICD Code 10/30/2012 - Colonoscopy due in 10 years hyerplastic polyp due 2022.11/10/24 colonoscopy repeat 5y 2004 - total hysterectomy cardiac cath normal 2016 pt had all upper teeth pulled a nd has dentures Surgical History Surgery Date(Month/Year) complete hysterectomy 07/2004
== END 2024-11-20 07:48 | disposition home or self-care (01) ==
LOC: HO.LAB 07:47
PROVIDERS: PCP Internal Medicine; Visit Provider Internal Medicine
DX: D49.0 Neoplasm of unspecified behavior of digestive system (principal); K86.2 Cyst of pancreas
CPT/HCPCS: 36415; 86301